=== PATIENT | male | born 1970 | race Caucasian/White ===

== ENCOUNTER 2016-10-08 11:34 | Emergency (ER) | payer OTHER ==
[~2016-10-08] VITALS: Ht 182.9 cm; Wt 100.3 kg
[~2016-10-08 11:34] MED LIST: ACTOS15 MG PO; ACTOS30 MG PO; ALBUTEROL0.63 MG/3 IH; ASPIR-LOW81 MG PO; ATIVAN0.5 MG PO; BENZTROPINE MESY1 MG PO; CLARITIN10 M3 PO; CLINDAMYCIN HC300 MG PO; COGENTIN2 MG PO; COLACE100 MG PO; COMBIVENT INH14.7 GM IH; Colace PO; DEPAKOTE500 MG PO; DICLOFENAC SODI75 MG PO; DOCUSATE SODIU100 MG PO; FAMOTIDINE20 M1 NG; FAMOTIDINE20 MG PO; FLEXERIL5 MG PO; FLUOXETINE HCL20 MG PO; GABAPENTIN400 MG PO; GLUCOPHAGE1000 MG PO; JUBLIA4 ML TP; KEFLEX500 MG PO; LANTUS 10100 UNITS/ SC; LANTUS 3 M100 UNITS/ SC; LANTUS 3 M100 UNITS1 SC; LATUDA40 MG PO; LISINOPRIL5 MG PO; LORATADINE10 M2 PO; MELOXICAM15 MG PO; METFORMIN HCL1000 M1 PO; METFORMIN HCL1000 MG PO; MIRALAX17 GM PO; MOBIC15 MG PO; MOBIC7.5 MG PO; Mobic PO; NAPROSYN500 MG PO; NEURONTIN600 MG PO; NEURONTIN800 MG PO; NOVOLOG 10100 UNITS/ SC; NOVOLOG PE100 UNITS/ SC; NOVOLOG100 UNIT/3 SC; Neurontin PO; OMEPRAZOLE20 MG PO; OMEPRAZOLE40 M1 PO; PANTOPRAZOLE SO40 MG PO; PERPHENAZINE16 MG PO; PIOGLITAZONE HC30 MG PO; PRAVASTATIN SOD40 MG PO; PRILOSEC20 MG PO; PROAIR HFA8.5 GM IH; PROMETHAZINE HC25 M1 PO; PriLOSEC PO; RESTORIL15 MG PO; RESTORIL30 MG PO; RISPERDAL25 MG/2 ML IM; RISPERIDONE3 MG PO; SAPHRIS10 MG SL; SIMVASTATIN20 MG PO; SINEQUAN50 MG PO; TOPAMAX50 MG PO; TRAMADOL HCL50 MG PO; TRAZODONE HCL50 MG PO; TRILAFON8 MG PO; Trilafon PO; ULTRAM50 MG PO; VENTOLIN HFA18 GM IH; VICODIN HP 11 TABLET; ZESTRIL,PRINIVIL5 MG PO; Zestril,Prinivil PO
[2016-10-08] MEDS ORDERED: NAPROSYN500 MG PO (15:43)
[2016-10-08] MEDS ORDERED: ELIMITE 5% CREA60 GM TP (15:46)
[2016-10-08 15:57] VITALS: BP 116/68
== END 2016-10-08 16:01 | disposition home or self-care (01) ==
LOC: EME 11:34
DX: S93.402A Sprain of unspecified ligament of left ankle, initial encounter (principal); S73.102A Unspecified sprain of left hip, initial encounter; B86 Scabies; W19.XXXA Unspecified fall, initial encounter; E11.9 Type 2 diabetes mellitus without complications
CPT/HCPCS: 73502; 73610; 99281; 99284

== ENCOUNTER 2016-10-10 08:25 | Emergency (ER) | payer OTHER ==
[~2016-10-10] VITALS: Ht 177.8 cm; Wt 98.4 kg
[~2016-10-10 08:25] MED LIST changes: +ELIMITE 5% CREA60 GM TP
[2016-10-10 09:13] LABS: EOSINOPHIL (%) 3.3 % (0-5); EOSINOPHIL COUNT 0.2 K/uL (0-0.3); HEMATOCRIT 40.8 % (38.0-50.0); IMMATURE GRANULOCYTE (%) 0.2 % (0.0-0.7); IMMATURE GRANULOCYTE COUNT 0.1 K/uL; LYMPHOCYTE COUNT 0.7 K/uL (1.0-2.8); MCH 30.5 PG (29.0-34.0); MCHC 32.6 G/DL (30.0-36.0); MEAN PLAT.VOLUME 10.3 uM^3 (9.0-12.4); MONOCYTE (%) 6.7 % (3-12); MONOCYTE COUNT 0.3 K/uL (0-0.8); NEUTROPHIL (%) 72.9 % (45-76); NEUTROPHIL COUNT 3.3 K/uL (1.8-6.4); PLATELET COUNT 227 K/uL (156-360); RBC DIS.WIDTH-CV 12.3 % (11.8-14.6); RED BLOOD COUNT 4.36 M/uL (4.00-5.50)
[2016-10-10 09:14] LABS: MCV 93.6 FL (86-99); WHITE BLOOD COUNT 4.5 K/uL (4.1-10.2)
[2016-10-10 09:20] LABS: CHLORIDE 103 mEq/L (99-109); POTASSIUM 3.7 mEq/L (3.7-5.4); SODIUM 139 mEq/L (136-147)
[2016-10-10 09:23] LABS: GLUCOSE 234 mg/dL (70-99)
[2016-10-10 09:24] LABS: ANION GAP 6 MEQ/L (2-14)
[2016-10-10 09:25] LABS: TOTAL BILIRUBIN 0.4 mg/dL (0.0-1.0)
[2016-10-10 09:26] LABS: ALKALINE PHOSPHATASE 98 IU/L (3-129); GFR ESTIMATE (CALCULATED) > 59 mL/min/; SERUM ETHYL ALCOHOL < 10 mg/dL
[2016-10-10 09:28] LABS: UREA NITROGEN (BUN) 12 mg/dL (9-23)
[2016-10-10 12:12] VITALS: BP 119/64
[2016-10-11] MEDS ORDERED: FAMOTIDINE20 MG PO (09:16)
[2016-10-11] MEDS ORDERED: METFORMIN HCL1000 MG PO (09:18)
[2016-10-11] MEDS ORDERED: DICLOFENAC SODI75 MG PO (09:19)
[2016-10-11] MEDS ORDERED: PROTONIX40 MG PO (09:21)
[2016-10-11] MEDS ORDERED: LORADAMED10 MG PO (09:23)
[2016-10-11] MEDS ORDERED: CLARITIN,ALAVAR10 MG PO (09:26)
[2016-10-11] MEDS ORDERED: LISINOPRIL5 MG PO (09:27)
[2016-10-11] MEDS ORDERED: ACTOS30 MG PO (09:28)
[2016-10-11] MEDS ORDERED: COGENTIN1 MG PO (09:29)
[2016-10-11] MEDS ORDERED: PROZAC20 MG PO (09:30)
[2016-10-11] MEDS ORDERED: RISPERDAL25 MG/2 ML IM (09:37)
== END 2016-10-10 12:13 | disposition home or self-care (01) ==
LOC: EME → EDBD 08:25 → EME 08:25
PROVIDERS: Emergency Medicine
DX: F20.9 Schizophrenia, unspecified (principal); I10 Essential (primary) hypertension; E11.9 Type 2 diabetes mellitus without complications; K21.9 Gastro-esophageal reflux disease without esophagitis; Z86.73 Personal history of transient ischemic attack (TIA), and cerebral infarction without residual deficits; Z88.2 Allergy status to sulfonamides; Z88.1 Allergy status to other antibiotic agents; Z87.891 Personal history of nicotine dependence
CPT/HCPCS: 80053; 85025; 90839; 99281; 99284; G0480

== ENCOUNTER 2016-10-10 20:20 | Inpatient (IN) | payer OTHER ==
[~2016-10-10] VITALS: Ht 177.8 cm; Wt 96.4 kg
[2016-10-10 22:11] LABS: HEMATOCRIT 38.5 % (38.0-50.0); MCH 30.6 PG (29.0-34.0); MCV 92.8 FL (86-99); MEAN PLAT.VOLUME 10.3 uM^3 (9.0-12.4); PLATELET COUNT 237 K/uL (156-360); RBC DIS.WIDTH-CV 12.4 % (11.8-14.6); RED BLOOD COUNT 4.15 M/uL (4.00-5.50); WHITE BLOOD COUNT 6.8 K/uL (4.1-10.2)
[2016-10-10 22:19] LABS: CHLORIDE 105 mEq/L (99-109); POTASSIUM 3.8 mEq/L (3.7-5.4); SODIUM 140 mEq/L (136-147)
[2016-10-10 22:21] LABS: GLUCOSE 186 mg/dL (70-99)
[2016-10-10 22:22] LABS: ANION GAP 6 MEQ/L (2-14)
[2016-10-10 22:24] LABS: SERUM ETHYL ALCOHOL < 10 mg/dL
[2016-10-10 22:25] LABS: GFR ESTIMATE (CALCULATED) > 59 mL/min/
[2016-10-10 22:26] LABS: UREA NITROGEN (BUN) 13 mg/dL (9-23)
[2016-10-11 00:50] LABS: BILIRUBIN NEGATIVE; BLOOD NEGATIVE; COLOR YELLOW ((YELLOW)); GLUCOSE (STRIP) 250; KETONES 15; LEUKOCYTES NEGATIVE; NITRITE NEGATIVE; PROTEIN (STRIP) NEGATIVE; SPECIFIC GRAVITY 1.022 (1.000-1.030); UROBILINOGEN 0.2 MG/DL (0.2-1.0)
[2016-10-11 00:52] LABS: ADD MIUA? NO; UCUL ADDED? NO
[2016-10-11 00:59] LABS: AMPHETAMINE NEGATIVE (500 ng/mL); BARBITURATES NEGATIVE (200 ng/mL); BENZODIAZEPINES NEGATIVE (150 ng/mL); COCAINE NEGATIVE (150 ng/mL); INTERNAL CONTROLS VALID? YES; METHADONE NEGATIVE (200 ng/mL); METHAMPHETAMINE NEGATIVE (500 ng/mL); OPIATES (MORPHINE) NEGATIVE (100 ng/mL); OXYCODONE NEGATIVE (100 ng/mL); PHENCYCLIDINE NEGATIVE (25 ng/mL); PROPOXYPHENE NEGATIVE (300 ng/mL); THC CANNABINOIDS NEGATIVE (50 ng/mL); TRICYCLIC ANTIDEPRESSANTS NEGATIVE (300 ng/mL)
[2016-10-11 01:02] VITALS: BP 127/58
[2016-10-11 02:32] LABS: POINT-OF-CARE METER ID UU13113830; POINT-OF-CARE USER ID ENVTLS63
[2016-10-11 07:51] VITALS: BP 134/69
[2016-10-11] MEDS ORDERED: FAMOTIDINE20 MG PO (09:16)
[2016-10-11] MEDS ORDERED: METFORMIN HCL1000 MG PO (09:18)
[2016-10-11] MEDS ORDERED: DICLOFENAC SODI75 MG PO (09:19)
[2016-10-11] MEDS ORDERED: PROTONIX40 MG PO (09:21)
[2016-10-11] MEDS ORDERED: LORADAMED10 MG PO (09:23)
[2016-10-11] MEDS ORDERED: CLARITIN,ALAVAR10 MG PO (09:26)
[2016-10-11] MEDS ORDERED: LISINOPRIL5 MG PO (09:27)
[2016-10-11] MEDS ORDERED: ACTOS30 MG PO (09:28)
[2016-10-11] MEDS ORDERED: COGENTIN1 MG PO (09:29)
[2016-10-11] MEDS ORDERED: PROZAC20 MG PO (09:30)
[2016-10-11] MEDS ORDERED: RISPERDAL25 MG/2 ML IM (09:37)
[2016-10-11 15:24] VITALS: BP 129/78
[2016-10-12 07:59] VITALS: BP 124/56
[2016-10-12 16:09] VITALS: BP 112/59
[2016-10-13 07:47] VITALS: BP 109/53
[2016-10-13 11:48] VITALS: BP 115/55
[2016-10-13 15:33] VITALS: BP 121/59
[2016-10-13 16:36] LABS: POINT-OF-CARE METER ID UU13113830; POINT-OF-CARE USER ID BHSLRM
[2016-10-13 21:08] LABS: POINT-OF-CARE METER ID UU13113830; POINT-OF-CARE USER ID BHSLRM
[2016-10-14 06:12] LABS: POINT-OF-CARE METER ID UU13113830; POINT-OF-CARE USER ID BHSSMG
[2016-10-14 07:49] VITALS: BP 113/59
[2016-10-14 15:36] VITALS: BP 120/63
[2016-10-14 21:19] LABS: POINT-OF-CARE METER ID UU13113830
[2016-10-15 06:14] LABS: POINT-OF-CARE METER ID UU13113830; POINT-OF-CARE USER ID ENVTLS63
[2016-10-15 08:07] VITALS: BP 106/72
[2016-10-15 08:56] VITALS: BP 106/72
[2016-10-15 15:37] VITALS: BP 125/62
[2016-10-15 21:23] LABS: POINT-OF-CARE METER ID UU13113830; POINT-OF-CARE USER ID ENVTLS63
[2016-10-16 06:27] LABS: POINT-OF-CARE METER ID UU13113830; POINT-OF-CARE USER ID ENVTLS63
[2016-10-16 07:53] VITALS: BP 105/53
[2016-10-16 15:35] VITALS: BP 121/58
[2016-10-16 21:29] LABS: POINT-OF-CARE METER ID UU13113830; POINT-OF-CARE USER ID BHSSMG
[2016-10-17 06:09] LABS: POINT-OF-CARE METER ID UU13113830
[2016-10-17 07:31] VITALS: BP 109/59
[2016-10-17 15:56] VITALS: BP 113/67
[2016-10-18 06:17] LABS: POINT-OF-CARE METER ID UU13113830
[2016-10-18 07:39] VITALS: BP 99/50
[2016-10-18 16:04] VITALS: BP 129/58
[2016-10-19 06:15] LABS: POINT-OF-CARE METER ID UU13113830; POINT-OF-CARE USER ID ENVTLS63
[2016-10-19 07:51] VITALS: BP 116/56
[2016-10-19 15:36] VITALS: BP 102/59
[2016-10-19 21:52] LABS: POINT-OF-CARE METER ID UU13113830
[2016-10-20 08:02] VITALS: BP 125/53
[2016-10-20] MEDS ORDERED: PERPHENAZINE4 MG PO ×2 (09:33)
[2016-10-20] MEDS ORDERED: MOTRIN600 MG PO (09:33)
== END 2016-10-20 11:31 | disposition home or self-care (01) | DRG 885 ==
LOC: EME 20:20 → EDOF 22:51 → 1WEST 22:51
PROVIDERS: Emergency Medicine; Psychiatry & Neurology Psychiatry
DX: F20.9 Schizophrenia, unspecified (principal); E11.9 Type 2 diabetes mellitus without complications; R23.4 Changes in skin texture; Z91.14 Patient's other noncompliance with medication regimen; I10 Essential (primary) hypertension
CPT/HCPCS: 80048; 80053; 81003; 82948; 85025; 85027; 90839; 97150 GO; 97165 GO; 99281; 99284; G0480; Q0175

== ENCOUNTER 2016-10-30 00:23 | Emergency (ER) | payer OTHER ==
[~2016-10-30] VITALS: Ht 185.4 cm; Wt 98.3 kg
[~2016-10-30 00:23] MED LIST changes: +CLARITIN,ALAVAR10 MG PO; +COGENTIN1 MG PO; +LORADAMED10 MG PO; +MOTRIN600 MG PO; +PERPHENAZINE4 MG PO; +PROTONIX40 MG PO; +PROZAC20 MG PO
[2016-10-30 03:02] VITALS: BP 118/71
== END 2016-10-30 03:03 | disposition home or self-care (01) ==
LOC: EME 00:23 → RME 00:23
DX: G89.29 Other chronic pain (principal); M25.571 Pain in right ankle and joints of right foot; M25.572 Pain in left ankle and joints of left foot; S93.402A Sprain of unspecified ligament of left ankle, initial encounter; X50.1XXA Overexertion from prolonged static or awkward postures, initial encounter; Z59.0 Homelessness; Z87.891 Personal history of nicotine dependence
CPT/HCPCS: 73610; 99281; 99284

== ENCOUNTER 2016-11-02 09:54 | Emergency (ER) | payer OTHER ==
[~2016-11-02] VITALS: Ht 188 cm; Wt 98.0 kg
[2016-11-02] MEDS ORDERED: NAPROXEN500 MG PO (10:55)
[2016-11-02 11:03] VITALS: BP 102/68
[2016-11-03] MEDS ORDERED: COGENTIN1 MG PO (07:59)
[2016-11-03] MEDS ORDERED: MOTRIN600 MG PO (07:59)
[2016-11-03] MEDS ORDERED: NEURONTIN800 MG PO (08:00)
[2016-11-03] MEDS ORDERED: PERPHENAZINE16 MG PO ×2 (08:00→08:01)
[2016-11-03] MEDS ORDERED: PROTONIX40 MG PO (08:01)
[2016-11-03] MEDS ORDERED: LISINOPRIL5 MG PO (08:02)
[2016-11-03] MEDS ORDERED: PEPCID20 MG PO (08:02)
[2016-11-03] MEDS ORDERED: CLARITIN,ALAVAR10 MG PO (08:03)
[2016-11-03] MEDS ORDERED: ACTOS30 MG PO (08:03)
[2016-11-03] MEDS ORDERED: GLUCOPHAGE1000 MG PO (08:04)
[2016-11-03] MEDS ORDERED: RISPERDAL25 MG/2 ML IM (08:05)
== END 2016-11-02 11:03 | disposition home or self-care (01) ==
LOC: EME 09:54
DX: S70.11XA Contusion of right thigh, initial encounter (principal); W50.2XXA Accidental twist by another person, initial encounter; Z88.0 Allergy status to penicillin; Z88.2 Allergy status to sulfonamides; Z88.1 Allergy status to other antibiotic agents
CPT/HCPCS: 99281; 99283; J1885

== ENCOUNTER 2016-11-03 01:41 | Inpatient (IN) | payer OTHER ==
[~2016-11-03] VITALS: Ht 188 cm; Wt 96.2 kg
[~2016-11-03 01:41] MED LIST changes: +NAPROXEN500 MG PO
[2016-11-03 03:56] LABS: ADD MIUA? NO; BILIRUBIN NEGATIVE; BLOOD NEGATIVE; COLOR YELLOW ((YELLOW)); GLUCOSE (STRIP) >=1000; KETONES NEGATIVE; LEUKOCYTES NEGATIVE; NITRITE NEGATIVE; PH, URINE 5.5 (5-8); PROTEIN (STRIP) NEGATIVE; SPECIFIC GRAVITY 1.033 (1.000-1.030)
[2016-11-03 04:07] LABS: HEMATOCRIT 36.9 % (38.0-50.0); MCH 30.4 PG (29.0-34.0); MCHC 32.5 G/DL (30.0-36.0); MCV 93.4 FL (86-99); MEAN PLAT.VOLUME 10.5 uM^3 (9.0-12.4); PLATELET COUNT 217 K/uL (156-360); RBC DIS.WIDTH-CV 12.6 % (11.8-14.6); RBC DIS.WIDTH-SD 41.5 % (39-53); RED BLOOD COUNT 3.95 M/uL (4.00-5.50); WHITE BLOOD COUNT 5.8 K/uL (4.1-10.2)
[2016-11-03 04:07] LABS: AMPHETAMINE NEGATIVE (500 ng/mL); BARBITURATES NEGATIVE (200 ng/mL); BENZODIAZEPINES NEGATIVE (150 ng/mL); COCAINE NEGATIVE (150 ng/mL); INTERNAL CONTROLS VALID? YES; METHADONE NEGATIVE (200 ng/mL); METHAMPHETAMINE NEGATIVE (500 ng/mL); OPIATES (MORPHINE) NEGATIVE (100 ng/mL); OXYCODONE NEGATIVE (100 ng/mL); PHENCYCLIDINE NEGATIVE (25 ng/mL); PROPOXYPHENE NEGATIVE (300 ng/mL); THC CANNABINOIDS NEGATIVE (50 ng/mL); TRICYCLIC ANTIDEPRESSANTS NEGATIVE (300 ng/mL)
[2016-11-03 04:14] LABS: CHLORIDE 106 mEq/L (99-109); POTASSIUM 4.1 mEq/L (3.7-5.4); SODIUM 139 mEq/L (136-147)
[2016-11-03 04:16] LABS: GLUCOSE 290 mg/dL (70-99)
[2016-11-03 04:17] LABS: ANION GAP 9 MEQ/L (2-14)
[2016-11-03 04:19] LABS: SERUM ETHYL ALCOHOL < 10 mg/dL
[2016-11-03 04:20] LABS: GFR ESTIMATE (CALCULATED) > 59 mL/min/; TOTAL BILIRUBIN 0.3 mg/dL (0.0-1.0)
[2016-11-03 04:21] LABS: ALKALINE PHOSPHATASE 86 IU/L (3-129)
[2016-11-03 04:22] LABS: DIRECT BILIRUBIN 0.2 mg/dL (0.0-0.3)
[2016-11-03 04:23] LABS: SALICYLATE < 5.0 MG/DL (15-30)
[2016-11-03 04:34] LABS: UREA NITROGEN (BUN) 24 mg/dL (9-23)
[2016-11-03 05:37] VITALS: BP 126/71
[2016-11-03 07:22] VITALS: BP 120/56
[2016-11-03] MEDS ORDERED: MOTRIN600 MG PO (07:59)
[2016-11-03] MEDS ORDERED: COGENTIN1 MG PO (07:59)
[2016-11-03] MEDS ORDERED: NEURONTIN800 MG PO (08:00)
[2016-11-03] MEDS ORDERED: PERPHENAZINE16 MG PO ×2 (08:00→08:01)
[2016-11-03] MEDS ORDERED: PROTONIX40 MG PO (08:01)
[2016-11-03] MEDS ORDERED: LISINOPRIL5 MG PO (08:02)
[2016-11-03] MEDS ORDERED: PEPCID20 MG PO (08:02)
[2016-11-03] MEDS ORDERED: ACTOS30 MG PO (08:03)
[2016-11-03] MEDS ORDERED: CLARITIN,ALAVAR10 MG PO (08:03)
[2016-11-03] MEDS ORDERED: GLUCOPHAGE1000 MG PO (08:04)
[2016-11-03] MEDS ORDERED: RISPERDAL25 MG/2 ML IM (08:05)
[2016-11-03 12:52] LABS: POINT-OF-CARE METER ID UU13113830
[2016-11-03 15:39] VITALS: BP 118/65
[2016-11-04 07:52] VITALS: BP 105/55
[2016-11-04 12:19] LABS: POINT-OF-CARE METER ID UU13113830; POINT-OF-CARE USER ID HRSENV50
[2016-11-04 15:52] VITALS: BP 112/53
[2016-11-04 17:47] VITALS: BP 133/87
[2016-11-05 07:45] VITALS: BP 95/54
[2016-11-05 13:51] LABS: POINT-OF-CARE METER ID UU13113830
[2016-11-05 16:06] VITALS: BP 100/53
[2016-11-06 07:40] VITALS: BP 110/67
[2016-11-06 15:40] VITALS: BP 134/69
[2016-11-07 07:46] VITALS: BP 109/56
[2016-11-07] MEDS ORDERED: RISPERDAL25 MG/2 ML IM (13:10)
[2016-11-07 15:26] VITALS: BP 112/55
[2016-11-08 09:45] VITALS: BP 117/63
[2016-11-08 15:40] VITALS: BP 122/58
[2016-11-09 07:57] VITALS: BP 117/58
[2016-11-09 15:31] VITALS: BP 112/61
[2016-11-10 07:42] VITALS: BP 107/63
[2016-11-10 16:25] VITALS: BP 116/58
[2016-11-11 07:43] VITALS: BP 97/58
[2016-11-11 15:27] VITALS: BP 122/59
[2016-11-12 07:59] VITALS: BP 118/58
[2016-11-12 08:58] LABS: EOSINOPHIL (%) 2.7 % (0-5); EOSINOPHIL COUNT 0.1 K/uL (0-0.3); HEMATOCRIT 40.2 % (38.0-50.0); IMMATURE GRANULOCYTE (%) 0.2 % (0.0-0.7); LYMPHOCYTE COUNT 1.1 K/uL (1.0-2.8); MCHC 32.3 G/DL (30.0-36.0); MCV 95.7 FL (86-99); MEAN PLAT.VOLUME 11.1 uM^3 (9.0-12.4); MONOCYTE (%) 4.3 % (3-12); MONOCYTE COUNT 0.2 K/uL (0-0.8); NEUTROPHIL (%) 71.7 % (45-76); NEUTROPHIL COUNT 3.7 K/uL (1.8-6.4); PLATELET COUNT 215 K/uL (156-360); RBC DIS.WIDTH-SD 44.8 % (39-53); WHITE BLOOD COUNT 5.2 K/uL (4.1-10.2)
[2016-11-12 09:16] LABS: ALKALINE PHOSPHATASE 70 IU/L (3-129); DIRECT BILIRUBIN 0.1 mg/dL (0.0-0.3); TOTAL BILIRUBIN 0.4 MG/DL (0.0-1.0)
[2016-11-12 15:12] VITALS: BP 145/60
[2016-11-13 07:24] VITALS: BP 132/63
[2016-11-13 15:34] VITALS: BP 117/56
[2016-11-14 07:59] VITALS: BP 97/56
[2016-11-14 16:00] VITALS: BP 111/54
[2016-11-15 07:45] VITALS: BP 115/58
[2016-11-15 16:29] VITALS: BP 105/48
[2016-11-16 07:59] VITALS: BP 131/60
[2016-11-16] MEDS ORDERED: DIVALPROEX SOD500 MG PO (09:22)
== END 2016-11-16 12:00 | disposition home or self-care (01) | DRG 885 ==
LOC: EXP 01:41 → EME 01:41 → EDOF 03:46 → 1WEST 03:46
PROVIDERS: Nurse Practitioner Family; Physician Assistant; Psychiatry & Neurology Psychiatry
DX: F20.9 Schizophrenia, unspecified (principal); I10 Essential (primary) hypertension; E11.9 Type 2 diabetes mellitus without complications; Z86.73 Personal history of transient ischemic attack (TIA), and cerebral infarction without residual deficits; Z91.81 History of falling
CPT/HCPCS: 73502; 80048; 80076; 80164; 81003; 82140; 82948; 85025; 85027; 90839; 97150 GO; 97166 GO; 99281; 99283; 99284; G0480; J1885; J2794; Q0175

== ENCOUNTER 2016-11-22 15:41 | Inpatient (IN) | payer OTHER ==
[~2016-11-22] VITALS: Ht 177.8 cm; Wt 100.1 kg
[~2016-11-22 15:41] MED LIST changes: +DIVALPROEX SOD500 MG PO; +PEPCID20 MG PO
[2016-11-22 19:25] LABS: HEMATOCRIT 35.5 % (38.0-50.0); MCH 30.5 PG (29.0-34.0); MCHC 32.7 G/DL (30.0-36.0); MCV 93.4 FL (86-99); MEAN PLAT.VOLUME 10.5 uM^3 (9.0-12.4); PLATELET COUNT 199 K/uL (156-360); RBC DIS.WIDTH-CV 12.7 % (11.8-14.6); RBC DIS.WIDTH-SD 41.9 % (39-53); WHITE BLOOD COUNT 6.7 K/uL (4.1-10.2)
[2016-11-22 19:32] LABS: CHLORIDE 107 mEq/L (99-109); POTASSIUM 3.7 mEq/L (3.7-5.4); SODIUM 144 mEq/L (136-147)
[2016-11-22 19:34] LABS: GLUCOSE 181 mg/dL (70-99)
[2016-11-22 19:36] LABS: ANION GAP 9 MEQ/L (2-14)
[2016-11-22 19:37] LABS: SERUM ETHYL ALCOHOL < 10 mg/dL
[2016-11-22 19:38] LABS: GFR ESTIMATE (CALCULATED) > 59 mL/min/
[2016-11-22 19:40] LABS: UREA NITROGEN (BUN) 11 mg/dL (9-23)
[2016-11-22 19:41] LABS: SALICYLATE < 5.0 MG/DL (15-30)
[2016-11-22 20:15] LABS: AMPHETAMINE NEGATIVE (500 ng/mL); COCAINE NEGATIVE (150 ng/mL); METHAMPHETAMINE NEGATIVE (500 ng/mL); OPIATES (MORPHINE) NEGATIVE (100 ng/mL); PHENCYCLIDINE NEGATIVE (25 ng/mL); THC CANNABINOIDS NEGATIVE (50 ng/mL)
[2016-11-22 20:16] LABS: BARBITURATES NEGATIVE (200 ng/mL); BENZODIAZEPINES NEGATIVE (150 ng/mL); INTERNAL CONTROLS VALID? YES; METHADONE NEGATIVE (200 ng/mL); OXYCODONE NEGATIVE (100 ng/mL); PROPOXYPHENE NEGATIVE (300 ng/mL); TRICYCLIC ANTIDEPRESSANTS NEGATIVE (300 ng/mL)
[2016-11-22] MEDS ORDERED: MOTRIN600 MG PO (21:59)
[2016-11-22] MEDS ORDERED: COGENTIN1 MG PO (22:00)
[2016-11-22] MEDS ORDERED: NEURONTIN800 MG PO (22:00)
[2016-11-22] MEDS ORDERED: PERPHENAZINE16 MG PO ×2 (22:01→22:02)
[2016-11-22] MEDS ORDERED: PROTONIX40 MG PO (22:03)
[2016-11-22] MEDS ORDERED: PEPCID20 MG PO (22:03)
[2016-11-22] MEDS ORDERED: LISINOPRIL5 MG PO (22:04)
[2016-11-22] MEDS ORDERED: ACTOS30 MG PO (22:04)
[2016-11-22] MEDS ORDERED: CLARITIN,ALAVAR10 MG PO (22:04)
[2016-11-22] MEDS ORDERED: RISPERDAL25 MG/2 ML IM (22:05)
[2016-11-22] MEDS ORDERED: DEPAKOTE500 MG PO (22:06)
[2016-11-22] MEDS ORDERED: GLUCOPHAGE1000 MG PO (22:06)
[2016-11-23 07:48] VITALS: BP 115/56
[2016-11-23 15:27] VITALS: BP 94/50
[2016-11-24 07:59] VITALS: BP 100/51
[2016-11-24 15:39] VITALS: BP 117/57
[2016-11-25 07:56] VITALS: BP 120/56
[2016-11-25 15:42] VITALS: BP 112/55
[2016-11-26 09:27] VITALS: BP 99/48
[2016-11-26 15:12] VITALS: BP 105/53
[2016-11-27 07:37] VITALS: BP 104/61
[2016-11-27 15:29] VITALS: BP 125/57
[2016-11-28 08:10] VITALS: BP 105/52
[2016-11-28 14:58] VITALS: BP 103/49
[2016-11-29 07:29] VITALS: BP 111/56
[2016-11-29 15:26] VITALS: BP 104/51
[2016-11-30 07:58] VITALS: BP 97/54
[2016-11-30 15:00] VITALS: BP 110/56
[2016-12-01 07:35] VITALS: BP 114/53
[2016-12-01 10:35] LABS: ADD MIUA? NO; BILIRUBIN NEGATIVE; BLOOD NEGATIVE; COLOR STRAW ((YELLOW)); GLUCOSE (STRIP) NEGATIVE; KETONES NEGATIVE; LEUKOCYTES NEGATIVE; NITRITE NEGATIVE; PROTEIN (STRIP) NEGATIVE; SPECIFIC GRAVITY 1.008 (1.000-1.030); UROBILINOGEN 0.2 MG/DL (0.2-1.0)
[2016-12-01 15:15] VITALS: BP 122/65
[2016-12-02 07:49] VITALS: BP 113/56
[2016-12-02 15:45] VITALS: BP 106/54
[2016-12-03 07:56] VITALS: BP 118/63
[2016-12-03 15:54] VITALS: BP 122/58
[2016-12-04 07:50] VITALS: BP 118/72
[2016-12-04 15:26] VITALS: BP 113/56
[2016-12-05 07:47] VITALS: BP 112/55
[2016-12-05 15:34] VITALS: BP 107/52
[2016-12-06 07:49] VITALS: BP 114/71
[2016-12-06 15:40] VITALS: BP 113/50
[2016-12-07 07:45] VITALS: BP 125/66
[2016-12-07 15:49] VITALS: BP 104/53
[2016-12-08 08:00] VITALS: BP 131/70
[2016-12-08 15:44] VITALS: BP 112/56
[2016-12-09 07:46] VITALS: BP 111/56
[2016-12-09 15:21] VITALS: BP 115/58
[2016-12-10 09:36] VITALS: BP 117/59
[2016-12-10 15:42] VITALS: BP 113/53
[2016-12-11 07:25] VITALS: BP 115/63
[2016-12-11 15:54] VITALS: BP 111/54
[2016-12-12 07:38] VITALS: BP 99/55
[2016-12-12 15:55] VITALS: BP 126/60
[2016-12-13 07:40] VITALS: BP 109/55
[2016-12-13 14:51] VITALS: BP 113/54
[2016-12-14] MEDS ORDERED: ARIPIPRAZOLE10 MG PO (09:31)
[2016-12-14 09:55] VITALS: BP 111/71
== END 2016-12-14 12:00 | disposition home or self-care (01) | DRG 885 ==
LOC: EME 15:41 → EDOF 19:26 → 1WEST 19:26
PROVIDERS: Emergency Medicine; Nurse Practitioner Family
DX: F20.1 Disorganized schizophrenia (principal); S92.354A Nondisplaced fracture of fifth metatarsal bone, right foot, initial encounter for closed fracture; H10.9 Unspecified conjunctivitis; J45.909 Unspecified asthma, uncomplicated; I10 Essential (primary) hypertension; E11.9 Type 2 diabetes mellitus without complications; K21.9 Gastro-esophageal reflux disease without esophagitis; G40.909 Epilepsy, unspecified, not intractable, without status epilepticus; F17.210 Nicotine dependence, cigarettes, uncomplicated; Z88.0 Allergy status to penicillin; Z88.1 Allergy status to other antibiotic agents; Z88.2 Allergy status to sulfonamides; X58.XXXA Exposure to other specified factors, initial encounter; Y92.239 Unspecified place in hospital as the place of occurrence of the external cause
CPT/HCPCS: 73630; 80048; 81003; 85027; 90837; 97150 GO; 97166 GO; 97530 GO; 99281; 99285; G0480; J2794

== ENCOUNTER 2016-12-18 19:46 | Emergency (ER) | payer OTHER ==
[~2016-12-18] VITALS: Ht 177.8 cm; Wt 96.2 kg
[~2016-12-18 19:46] MED LIST changes: +ARIPIPRAZOLE10 MG PO
[2016-12-18 20:07] VITALS: BP 103/79
[2016-12-18] MEDS ORDERED: NORCO 5/3251 TABLET PO (23:15)
== END 2016-12-18 23:55 | disposition home or self-care (01) ==
LOC: EME 19:46
PROC: 2W3QX1Z Immobilization of Right Lower Leg using Splint (ICD-10-PCS; principal; 2016-12-18)
DX: S92.351A Displaced fracture of fifth metatarsal bone, right foot, initial encounter for closed fracture (principal); M79.604 Pain in right leg; M25.551 Pain in right hip; M79.662 Pain in left lower leg; Y04.2XXA Assault by strike against or bumped into by another person, initial encounter; I10 Essential (primary) hypertension; E11.9 Type 2 diabetes mellitus without complications; Z87.891 Personal history of nicotine dependence
CPT/HCPCS: 73552; 73590; 73630; 99281; 99283

== ENCOUNTER 2016-12-19 11:25 | Emergency (ER) | payer OTHER ==
[~2016-12-19] VITALS: Ht 177.8 cm; Wt 96.3 kg
[~2016-12-19 11:25] MED LIST changes: +NORCO 5/3251 TABLET PO
[2016-12-19 14:21] LABS: EOSINOPHIL (%) 1.4 % (0-5); EOSINOPHIL COUNT 0.1 K/uL (0-0.3); HEMATOCRIT 39.4 % (38.0-50.0); IMMATURE GRANULOCYTE (%) 0.5 % (0.0-0.7); INSTRUMENT ABS NEUTROPHIL CT 4.3 K/uL; MCH 30.5 PG (29.0-34.0); MCHC 32.5 G/DL (30.0-36.0); MEAN PLAT.VOLUME 10.6 uM^3 (9.0-12.4); MONOCYTE (%) 7.8 % (3-12); MONOCYTE COUNT 0.5 K/uL (0-0.8); NEUTROPHIL (%) 73.2 % (45-76); NEUTROPHIL COUNT 4.3 K/uL (1.8-6.4); PLATELET COUNT 237 K/uL (156-360); RBC DIS.WIDTH-CV 13.2 % (11.8-14.6); RBC DIS.WIDTH-SD 45.1 % (39-53); RED BLOOD COUNT 4.19 M/uL (4.00-5.50); WHITE BLOOD COUNT 5.9 K/uL (4.1-10.2)
[2016-12-19 14:32] LABS: CHLORIDE 105 mEq/L (99-109); POTASSIUM 3.9 mEq/L (3.7-5.4); SODIUM 142 mEq/L (136-147)
[2016-12-19 14:34] LABS: GLUCOSE 157 mg/dL (70-99)
[2016-12-19 14:35] LABS: ANION GAP 11 MEQ/L (2-14)
[2016-12-19 14:36] LABS: TOTAL BILIRUBIN 0.7 mg/dL (0.0-1.0)
[2016-12-19 14:37] LABS: ALKALINE PHOSPHATASE 104 IU/L (3-129)
[2016-12-19 14:38] LABS: GFR ESTIMATE (CALCULATED) > 59 mL/min/
[2016-12-19 14:39] LABS: UREA NITROGEN (BUN) 19 mg/dL (9-23)
[2016-12-19 15:11] VITALS: BP 125/73
== END 2016-12-19 15:11 | disposition home or self-care (01) ==
LOC: EME 11:25
PROVIDERS: Physician Assistant
DX: K21.9 Gastro-esophageal reflux disease without esophagitis (principal)
CPT/HCPCS: 74020; 80053; 85025; 99281; 99283

== ENCOUNTER 2016-12-19 19:39 | Emergency (ER) | payer OTHER ==
[~2016-12-19] VITALS: Ht 177.8 cm; Wt 91.9 kg
[2016-12-19 20:36] LABS: HEMATOCRIT 36.7 % (38.0-50.0); MCH 30.5 PG (29.0-34.0); MCHC 32.7 G/DL (30.0-36.0); MCV 93.1 FL (86-99); PLATELET COUNT 216 K/uL (156-360); RBC DIS.WIDTH-CV 13.2 % (11.8-14.6); RBC DIS.WIDTH-SD 45.1 % (39-53); RED BLOOD COUNT 3.94 M/uL (4.00-5.50)
[2016-12-19 20:45] LABS: CHLORIDE 106 mEq/L (99-109); POTASSIUM 4.3 mEq/L (3.7-5.4); SODIUM 143 mEq/L (136-147)
[2016-12-19 20:47] LABS: GLUCOSE 149 mg/dL (70-99)
[2016-12-19 20:48] LABS: ANION GAP 11 MEQ/L (2-14)
[2016-12-19 20:49] LABS: TOTAL BILIRUBIN 0.6 mg/dL (0.0-1.0)
[2016-12-19 20:50] LABS: SERUM ETHYL ALCOHOL < 10 mg/dL
[2016-12-19 20:51] LABS: ALKALINE PHOSPHATASE 99 IU/L (3-129); GFR ESTIMATE (CALCULATED) > 59 mL/min/
[2016-12-19 20:52] LABS: UREA NITROGEN (BUN) 21 mg/dL (9-23)
[2016-12-19 23:35] VITALS: BP 137/76
== END 2016-12-19 23:37 | disposition home or self-care (01) ==
LOC: EME → EDBD 19:39 → EME 19:39
PROVIDERS: Emergency Medicine
DX: F22 Delusional disorders (principal); R45.1 Restlessness and agitation; I10 Essential (primary) hypertension; E11.9 Type 2 diabetes mellitus without complications; Z85.841 Personal history of malignant neoplasm of brain
CPT/HCPCS: 80053; 81003; 85027; 99281; 99284; G0480

== ENCOUNTER 2016-12-25 20:33 | Inpatient (IN) | payer OTHER ==
[~2016-12-25] VITALS: Ht 177.8 cm; Wt 90.3 kg
[2016-12-25 23:35] LABS: EOSINOPHIL (%) 2.1 % (0-5); EOSINOPHIL COUNT 0.1 K/uL (0-0.3); HEMATOCRIT 37.6 % (38.0-50.0); IMMATURE GRANULOCYTE (%) 0.3 % (0.0-0.7); INSTRUMENT ABS NEUTROPHIL CT 4.6 K/uL; LYMPHOCYTE COUNT 1.3 K/uL (1.0-2.8); MCH 30.9 PG (29.0-34.0); MCHC 33.2 G/DL (30.0-36.0); MCV 92.8 FL (86-99); MEAN PLAT.VOLUME 10.3 uM^3 (9.0-12.4); MONOCYTE (%) 7.4 % (3-12); MONOCYTE COUNT 0.5 K/uL (0-0.8); NEUTROPHIL (%) 69.8 % (45-76); NEUTROPHIL COUNT 4.6 K/uL (1.8-6.4); PLATELET COUNT 216 K/uL (156-360); RBC DIS.WIDTH-CV 12.8 % (11.8-14.6); RBC DIS.WIDTH-SD 43.6 % (39-53); RED BLOOD COUNT 4.05 M/uL (4.00-5.50); WHITE BLOOD COUNT 6.6 K/uL (4.1-10.2)
[2016-12-25 23:47] LABS: INTER. NORMALIZED RATIO 1.1; PROTHROMBIN TIME 11.3 (9.2-11.2); PTT 25.2 (25-32)
[2016-12-25 23:51] LABS: CHLORIDE 103 mEq/L (99-109); POTASSIUM 4.1 mEq/L (3.7-5.4); SODIUM 141 mEq/L (136-147)
[2016-12-25 23:53] LABS: GLUCOSE 128 mg/dL (70-99)
[2016-12-25 23:54] LABS: ANION GAP 13 MEQ/L (2-14)
[2016-12-25 23:56] LABS: GFR ESTIMATE (CALCULATED) > 59 mL/min/
[2016-12-25 23:57] LABS: UREA NITROGEN (BUN) 18 mg/dL (9-23)
[2016-12-26 02:09] LABS: BILIRUBIN NEGATIVE; BLOOD NEGATIVE; COLOR YELLOW ((YELLOW)); GLUCOSE (STRIP) NEGATIVE; KETONES NEGATIVE; LEUKOCYTES NEGATIVE; NITRITE NEGATIVE; PROTEIN (STRIP) NEGATIVE; SPECIFIC GRAVITY 1.013 (1.000-1.030)
[2016-12-26 02:16] LABS: ADD MIUA? NO; UCUL ADDED? NO
[2016-12-26 10:10] VITALS: BP 113/67
[2016-12-26 15:34] VITALS: BP 114/57
[2016-12-27 07:39] VITALS: BP 116/58
[2016-12-27 16:02] VITALS: BP 118/60
[2016-12-28 07:52] VITALS: BP 119/55
[2016-12-28 14:38] VITALS: BP 112/58
[2016-12-28 15:37] VITALS: BP 113/53
[2016-12-29 07:24] VITALS: BP 116/59
[2016-12-29 15:31] VITALS: BP 119/61
[2016-12-30 07:47] VITALS: BP 120/58
[2016-12-30] MEDS ORDERED: ARIPIPRAZOLE10 MG PO (09:22)
== END 2016-12-30 11:49 | disposition home or self-care (01) | DRG 885 ==
LOC: EME 20:33 → EDOF 12-26 04:52 → 1WEST 12-26 04:52
PROVIDERS: Emergency Medicine
DX: F20.1 Disorganized schizophrenia (principal); Z59.0 Homelessness; E11.9 Type 2 diabetes mellitus without complications; I10 Essential (primary) hypertension; G89.4 Chronic pain syndrome; M19.90 Unspecified osteoarthritis, unspecified site; K21.9 Gastro-esophageal reflux disease without esophagitis; J45.909 Unspecified asthma, uncomplicated
CPT/HCPCS: 70450; 72131; 73564; 73610; 74176; 80048; 81003; 85025; 85610; 85730; 90839; 97150 GO; 97166 GO; 99281; 99284

== ENCOUNTER 2017-01-04 12:32 | Emergency (ER) | payer OTHER ==
[~2017-01-04] VITALS: Ht 180.3 cm; Wt 90.1 kg
[2017-01-04 13:32] LABS: HEMATOCRIT 38.5 % (38.0-50.0); MCH 30.9 PG (29.0-34.0); MCHC 32.7 G/DL (30.0-36.0); MCV 94.4 FL (86-99); MEAN PLAT.VOLUME 10.2 uM^3 (9.0-12.4); PLATELET COUNT 219 K/uL (156-360); RBC DIS.WIDTH-CV 12.7 % (11.8-14.6); RBC DIS.WIDTH-SD 43.8 % (39-53); RED BLOOD COUNT 4.08 M/uL (4.00-5.50); WHITE BLOOD COUNT 4.7 K/uL (4.1-10.2)
[2017-01-04 13:48] LABS: CHLORIDE 106 mEq/L (99-109); POTASSIUM 4.2 mEq/L (3.7-5.4); SODIUM 141 mEq/L (136-147)
[2017-01-04 13:49] LABS: GLUCOSE 260 mg/dL (70-99)
[2017-01-04 13:51] LABS: ANION GAP 10 MEQ/L (2-14)
[2017-01-04 13:53] LABS: GFR ESTIMATE (CALCULATED) > 59 mL/min/
[2017-01-04 13:54] LABS: UREA NITROGEN (BUN) 12 mg/dL (9-23)
[2017-01-04 14:01] LABS: ADD MIUA? YES; BILIRUBIN NEGATIVE; BLOOD NEGATIVE; COLOR YELLOW ((YELLOW)); GLUCOSE (STRIP) 50; KETONES NEGATIVE; LEUKOCYTES NEGATIVE; NITRITE NEGATIVE; PROTEIN (STRIP) 100
[2017-01-04 14:13] LABS: BACTERIA NONE SEEN /HPF; EPITHELIAL CELLS RARE /HPF; HYALINE CASTS 0-5 /LPF; MUCUS 2+ /LPF; RED BLOOD CELLS 0-5 /HPF (0-5); UCUL ADDED? NO; WHITE BLOOD CELLS 0-5 /HPF (0-5)
[2017-01-04 14:40] LABS: CASTS PRESENT /LPF; CRYSTALS NONE SEEN
[2017-01-04 14:55] LABS: TROP-I INTERPRETATION NEGATIVE; TROPONIN-I < 0.01 ng/mL (0.0-0.30)
[2017-01-04] MEDS ORDERED: CLOTRIM ANTIFUN15 GM TP (15:28)
[2017-01-04 15:50] VITALS: BP 131/72
== END 2017-01-04 15:50 | disposition home or self-care (01) ==
LOC: EME 12:32
PROVIDERS: Emergency Medicine
DX: N48.1 Balanitis (principal); E11.65 Type 2 diabetes mellitus with hyperglycemia; I10 Essential (primary) hypertension; K21.9 Gastro-esophageal reflux disease without esophagitis; R56.9 Unspecified convulsions; F20.9 Schizophrenia, unspecified; G89.29 Other chronic pain; Z86.73 Personal history of transient ischemic attack (TIA), and cerebral infarction without residual deficits; Z85.841 Personal history of malignant neoplasm of brain; Z87.891 Personal history of nicotine dependence
CPT/HCPCS: 80048; 81003; 84484; 85027; 93005; 99281; 99284

== ENCOUNTER 2017-01-06 10:17 | Emergency (ER) | payer OTHER ==
[~2017-01-06] VITALS: Ht 177.8 cm; Wt 90.4 kg
[~2017-01-06 10:17] MED LIST changes: +CLOTRIM ANTIFUN15 GM TP
[2017-01-06 11:10] LABS: EOSINOPHIL (%) 1.7 % (0-5); EOSINOPHIL COUNT 0.1 K/uL (0-0.3); HEMATOCRIT 37.5 % (38.0-50.0); IMMATURE GRANULOCYTE (%) 0.4 % (0.0-0.7); INSTRUMENT ABS NEUTROPHIL CT 3.3 K/uL; LYMPHOCYTE COUNT 0.9 K/uL (1.0-2.8); MCH 30.8 PG (29.0-34.0); MCHC 32.8 G/DL (30.0-36.0); MCV 93.8 FL (86-99); MONOCYTE (%) 5.6 % (3-12); MONOCYTE COUNT 0.3 K/uL (0-0.8); NEUTROPHIL (%) 72.4 % (45-76); NEUTROPHIL COUNT 3.3 K/uL (1.8-6.4); PLATELET COUNT 230 K/uL (156-360); RBC DIS.WIDTH-CV 12.6 % (11.8-14.6); RBC DIS.WIDTH-SD 43.6 % (39-53); WHITE BLOOD COUNT 4.6 K/uL (4.1-10.2)
[2017-01-06 11:20] LABS: CHLORIDE 103 mEq/L (99-109); POTASSIUM 3.9 mEq/L (3.7-5.4); SODIUM 140 mEq/L (136-147)
[2017-01-06 11:22] LABS: GLUCOSE 245 mg/dL (70-99)
[2017-01-06 11:24] LABS: ANION GAP 10 MEQ/L (2-14); TOTAL BILIRUBIN 0.5 mg/dL (0.0-1.0)
[2017-01-06 11:26] LABS: ALKALINE PHOSPHATASE 86 IU/L (3-129); GFR ESTIMATE (CALCULATED) > 59 mL/min/
[2017-01-06 11:27] LABS: UREA NITROGEN (BUN) 18 mg/dL (9-23)
[2017-01-06 11:28] LABS: DIRECT BILIRUBIN 0.3 mg/dL (0.0-0.3)
[2017-01-06 11:29] LABS: LIPASE 16 U/L (1.0-51.0)
[2017-01-06 11:32] LABS: TROP-I INTERPRETATION NEGATIVE; TROPONIN-I < 0.01 ng/mL (0.0-0.30)
[2017-01-06] MEDS ORDERED: ZOFRAN4 MG PO (13:30)
[2017-01-06 13:40] VITALS: BP 131/76
== END 2017-01-06 13:45 | disposition home or self-care (01) ==
LOC: EME 10:17
PROVIDERS: Emergency Medicine
DX: R10.10 Upper abdominal pain, unspecified (principal); R11.10 Vomiting, unspecified; E11.9 Type 2 diabetes mellitus without complications; I10 Essential (primary) hypertension; K21.9 Gastro-esophageal reflux disease without esophagitis; R56.9 Unspecified convulsions; G89.29 Other chronic pain; Z86.73 Personal history of transient ischemic attack (TIA), and cerebral infarction without residual deficits; Z85.841 Personal history of malignant neoplasm of brain; Z79.84 Long term (current) use of oral hypoglycemic drugs; Z87.891 Personal history of nicotine dependence
CPT/HCPCS: 71260; 74177; 80048; 80076; 83690; 84484; 85025; 93005; 99281; 99285; J2405; J3010; J7030

== ENCOUNTER 2017-01-26 01:58 | Emergency (ER) | payer OTHER ==
[~2017-01-26] VITALS: Ht 177.8 cm; Wt 90.9 kg
[~2017-01-26 01:58] MED LIST changes: +ZOFRAN4 MG PO
[2017-01-26 02:38] LABS: HEMATOCRIT 37.2 % (38.0-50.0); MCHC 32.8 G/DL (30.0-36.0); MCV 94.7 FL (86-99); MEAN PLAT.VOLUME 9.6 uM^3 (9.0-12.4); PLATELET COUNT 235 K/uL (156-360); RBC DIS.WIDTH-CV 12.8 % (11.8-14.6); RED BLOOD COUNT 3.93 M/uL (4.00-5.50)
[2017-01-26 02:39] LABS: WHITE BLOOD COUNT 6.7 K/uL (4.1-10.2)
[2017-01-26 02:41] LABS: ADD MIUA? NO; BILIRUBIN NEGATIVE; BLOOD NEGATIVE; COLOR YELLOW ((YELLOW)); GLUCOSE (STRIP) NEGATIVE; KETONES 5; LEUKOCYTES NEGATIVE; NITRITE NEGATIVE; PROTEIN (STRIP) NEGATIVE; UCUL ADDED? NO
[2017-01-26 02:46] LABS: CHLORIDE 103 mEq/L (99-109); POTASSIUM 3.7 mEq/L (3.7-5.4); SODIUM 139 mEq/L (136-147)
[2017-01-26 02:48] LABS: GLUCOSE 211 mg/dL (70-99)
[2017-01-26 02:49] LABS: ANION GAP 9 MEQ/L (2-14)
[2017-01-26 02:50] LABS: TOTAL BILIRUBIN 0.4 mg/dL (0.0-1.0)
[2017-01-26 02:51] LABS: ALKALINE PHOSPHATASE 80 IU/L (3-129)
[2017-01-26 02:52] LABS: GFR ESTIMATE (CALCULATED) > 59 mL/min/
[2017-01-26 02:53] LABS: UREA NITROGEN (BUN) 18 mg/dL (9-23)
[2017-01-26 05:35] VITALS: BP 125/84
== END 2017-01-26 05:48 | disposition home or self-care (01) ==
LOC: EME 01:58
DX: R10.30 Lower abdominal pain, unspecified (principal); S39.012A Strain of muscle, fascia and tendon of lower back, initial encounter; F20.9 Schizophrenia, unspecified; E11.9 Type 2 diabetes mellitus without complications; Z79.84 Long term (current) use of oral hypoglycemic drugs; I10 Essential (primary) hypertension; Z86.73 Personal history of transient ischemic attack (TIA), and cerebral infarction without residual deficits; Z91.012 Allergy to eggs; Z91.011 Allergy to milk products; Z91.018 Allergy to other foods; Z88.2 Allergy status to sulfonamides; Z88.0 Allergy status to penicillin; Z88.1 Allergy status to other antibiotic agents; Z87.891 Personal history of nicotine dependence
CPT/HCPCS: 80053; 81003; 85027; 99281; 99284

== ENCOUNTER 2017-01-30 08:16 | Emergency (ER) | payer OTHER ==
[~2017-01-30] VITALS: Ht 177.8 cm; Wt 90.9 kg
[2017-01-30 10:24] LABS: HEMATOCRIT 35.2 % (38.0-50.0); MCH 31.3 PG (29.0-34.0); MCHC 32.7 G/DL (30.0-36.0); MCV 95.9 FL (86-99); MEAN PLAT.VOLUME 10.6 uM^3 (9.0-12.4); PLATELET COUNT 202 K/uL (156-360); RBC DIS.WIDTH-SD 45.8 % (39-53); RED BLOOD COUNT 3.67 M/uL (4.00-5.50)
[2017-01-30 10:25] LABS: WHITE BLOOD COUNT 4.6 K/uL (4.1-10.2)
[2017-01-30 10:33] LABS: CHLORIDE 106 mEq/L (99-109); POTASSIUM 4.2 mEq/L (3.7-5.4); SODIUM 143 mEq/L (136-147)
[2017-01-30 10:34] LABS: GLUCOSE 169 mg/dL (70-99)
[2017-01-30 10:39] LABS: ANION GAP 11 MEQ/L (2-14); GFR ESTIMATE (CALCULATED) > 59 mL/min/; UREA NITROGEN (BUN) 16 mg/dL (9-23)
[2017-01-30 10:42] LABS: ADD MIUA? YES; BILIRUBIN SMALL; BLOOD NEGATIVE; COLOR AMBER ((YELLOW)); GLUCOSE (STRIP) 50; KETONES 20; LEUKOCYTES NEGATIVE; NITRITE NEGATIVE; PROTEIN (STRIP) 30; SPECIFIC GRAVITY 1.029 (1.000-1.030)
[2017-01-30 10:47] LABS: BACTERIA NONE SEEN /HPF; EPITHELIAL CELLS RARE /HPF; MUCUS 4+ /LPF; RED BLOOD CELLS 0-5 /HPF (0-5); WHITE BLOOD CELLS 0-5 /HPF (0-5)
[2017-01-30 10:53] LABS: ALKALINE PHOSPHATASE 80 IU/L (3-129)
[2017-01-30 10:54] LABS: TOTAL BILIRUBIN 0.6 mg/dL (0.0-1.0)
[2017-01-30 10:55] LABS: DIRECT BILIRUBIN 0.3 mg/dL (0.0-0.3)
[2017-01-30 10:56] LABS: LIPASE 15 U/L (1.0-51.0)
[2017-01-30 10:57] LABS: CREATINE KINASE 283 IU/L (1-294)
[2017-01-30 11:04] LABS: TROP-I INTERPRETATION NEGATIVE; TROPONIN-I < 0.01 ng/mL (0.0-0.30)
[2017-01-30 11:50] VITALS: BP 126/67
== END 2017-01-30 11:51 | disposition home or self-care (01) ==
LOC: EME 08:16
PROVIDERS: Nurse Practitioner Family
DX: M25.571 Pain in right ankle and joints of right foot (principal); M25.572 Pain in left ankle and joints of left foot; F20.9 Schizophrenia, unspecified; G89.29 Other chronic pain; I10 Essential (primary) hypertension; K21.9 Gastro-esophageal reflux disease without esophagitis; Z86.73 Personal history of transient ischemic attack (TIA), and cerebral infarction without residual deficits; E11.9 Type 2 diabetes mellitus without complications; F32.9 Major depressive disorder, single episode, unspecified; Z87.891 Personal history of nicotine dependence; R07.2 Precordial pain
CPT/HCPCS: 71020; 73610; 80048; 80076; 81003; 82550; 83690; 84484; 85027; 93005; 99281; 99285

== ENCOUNTER 2017-02-02 02:37 | Emergency (ER) | payer OTHER ==
[~2017-02-02] VITALS: Ht 177.8 cm; Wt 90.8 kg
[2017-02-02 04:30] VITALS: BP 149/79
== END 2017-02-02 04:46 | disposition home or self-care (01) ==
LOC: EME 02:37
DX: S20.212A Contusion of left front wall of thorax, initial encounter (principal); S20.211A Contusion of right front wall of thorax, initial encounter; Y08.02XA Assault by strike by baseball bat, initial encounter; Y92.129 Unspecified place in nursing home as the place of occurrence of the external cause; E11.9 Type 2 diabetes mellitus without complications; Z79.84 Long term (current) use of oral hypoglycemic drugs; Z59.0 Homelessness
CPT/HCPCS: 71020; 99281; 99284

== ENCOUNTER 2017-02-03 00:56 | Emergency (ER) | payer OTHER ==
[~2017-02-03] VITALS: Ht 177.8 cm; Wt 90.8 kg
[2017-02-03 02:04] LABS: HEMATOCRIT 36.2 % (38.0-50.0); MCH 31.1 PG (29.0-34.0); MCHC 32.3 G/DL (30.0-36.0); MCV 96.3 FL (86-99); MEAN PLAT.VOLUME 9.8 uM^3 (9.0-12.4); PLATELET COUNT 219 K/uL (156-360); RBC DIS.WIDTH-CV 12.8 % (11.8-14.6); RED BLOOD COUNT 3.76 M/uL (4.00-5.50); WHITE BLOOD COUNT 4.8 K/uL (4.1-10.2)
[2017-02-03 02:12] LABS: CHLORIDE 105 mEq/L (99-109); POTASSIUM 4.1 mEq/L (3.7-5.4); SODIUM 140 mEq/L (136-147)
[2017-02-03 02:14] LABS: GLUCOSE 256 mg/dL (70-99)
[2017-02-03 02:16] LABS: ANION GAP 8 MEQ/L (2-14)
[2017-02-03 02:17] LABS: TOTAL BILIRUBIN 0.3 mg/dL (0.0-1.0)
[2017-02-03 02:18] LABS: ALKALINE PHOSPHATASE 75 IU/L (3-129); GFR ESTIMATE (CALCULATED) > 59 mL/min/
[2017-02-03 02:19] LABS: UREA NITROGEN (BUN) 14 mg/dL (9-23)
[2017-02-03 02:52] LABS: ADD MIUA? YES; BILIRUBIN NEGATIVE; BLOOD NEGATIVE; COLOR YELLOW ((YELLOW)); GLUCOSE (STRIP) 150; KETONES NEGATIVE; LEUKOCYTES NEGATIVE; NITRITE NEGATIVE; PROTEIN (STRIP) NEGATIVE; SPECIFIC GRAVITY 1.025 (1.000-1.030)
[2017-02-03 03:00] LABS: BACTERIA NONE SEEN /HPF; EPITHELIAL CELLS NONE SEEN /HPF; MUCUS TRACE /LPF; UCUL ADDED? NO; WHITE BLOOD CELLS 0-5 /HPF (0-5)
[2017-02-03 03:58] VITALS: BP 147/72
== END 2017-02-03 03:58 | disposition home or self-care (01) ==
LOC: EME 00:56
PROVIDERS: Emergency Medicine
DX: R10.9 Unspecified abdominal pain (principal); R07.89 Other chest pain; F20.9 Schizophrenia, unspecified; I10 Essential (primary) hypertension; E11.9 Type 2 diabetes mellitus without complications; R11.2 Nausea with vomiting, unspecified; Z91.14 Patient's other noncompliance with medication regimen
CPT/HCPCS: 71020; 74176; 80053; 81003; 85027; 90839; 93005; 99281; 99283; J1885

== ENCOUNTER 2017-02-14 14:14 | Emergency (ER) | payer OTHER ==
[~2017-02-14] VITALS: Ht 172.7 cm; Wt 89.5 kg
[2017-02-14 14:21] VITALS: BP 125/59
== END 2017-02-14 15:34 | disposition home or self-care (01) ==
LOC: EME 14:14
DX: S93.402A Sprain of unspecified ligament of left ankle, initial encounter (principal); X50.0XXA Overexertion from strenuous movement or load, initial encounter; Y93.01 Activity, walking, marching and hiking; F20.9 Schizophrenia, unspecified; J45.909 Unspecified asthma, uncomplicated; I10 Essential (primary) hypertension; E11.9 Type 2 diabetes mellitus without complications; K21.9 Gastro-esophageal reflux disease without esophagitis
CPT/HCPCS: 73610; 99281; 99283

== ENCOUNTER 2017-02-17 11:25 | Emergency (ER) | payer OTHER ==
[~2017-02-17] VITALS: Ht 177.8 cm; Wt 77.0 kg
[2017-02-17] MEDS ORDERED: MOTRIN800 MG PO (14:03)
[2017-02-17 14:18] VITALS: BP 122/63
[2017-02-18] MEDS ORDERED: MOTRIN800 MG PO (13:50)
== END 2017-02-17 14:21 | disposition home or self-care (01) ==
LOC: EME 11:25
DX: S90.00XA Contusion of unspecified ankle, initial encounter (principal); Y08.02XA Assault by strike by baseball bat, initial encounter; Y92.049 Unspecified place in boarding-house as the place of occurrence of the external cause; M25.572 Pain in left ankle and joints of left foot; M25.571 Pain in right ankle and joints of right foot; Z87.891 Personal history of nicotine dependence
CPT/HCPCS: 73610; 99281; 99284

== ENCOUNTER 2017-02-18 12:59 | Emergency (ER) | payer OTHER ==
[~2017-02-18] VITALS: Ht 177.8 cm; Wt 77.0 kg
[~2017-02-18 12:59] MED LIST changes: +MOTRIN800 MG PO
[2017-02-18] MEDS ORDERED: MOTRIN800 MG PO (13:50)
[2017-02-18 14:18] VITALS: BP 95/44
== END 2017-02-18 14:19 | disposition home or self-care (01) ==
LOC: EXP 12:59 → EME 12:59 → EXP 14:19
DX: S70.01XA Contusion of right hip, initial encounter (principal); W18.30XA Fall on same level, unspecified, initial encounter; Y92.414 Local residential or business street as the place of occurrence of the external cause; E11.9 Type 2 diabetes mellitus without complications; I10 Essential (primary) hypertension; K21.9 Gastro-esophageal reflux disease without esophagitis; R56.9 Unspecified convulsions; Z86.73 Personal history of transient ischemic attack (TIA), and cerebral infarction without residual deficits; Z87.891 Personal history of nicotine dependence
CPT/HCPCS: 87420; 99281; 99284

== ENCOUNTER 2017-02-21 07:37 | Inpatient (IN) | payer OTHER ==
[~2017-02-21] VITALS: Ht 172.7 cm; Wt 88.0 kg
[2017-02-21 08:09] LABS: HEMATOCRIT 35.3 % (38.0-50.0); MCH 30.2 PG (29.0-34.0); MCV 94.4 FL (86-99); MEAN PLAT.VOLUME 9.5 uM^3 (9.0-12.4); PLATELET COUNT 265 K/uL (156-360); RBC DIS.WIDTH-CV 12.2 % (11.8-14.6); RBC DIS.WIDTH-SD 42.5 % (39-53); RED BLOOD COUNT 3.74 M/uL (4.00-5.50)
[2017-02-21 08:11] LABS: WHITE BLOOD COUNT 9.5 K/uL (4.1-10.2)
[2017-02-21 08:42] LABS: ANION GAP 8 MEQ/L (2-14); CHLORIDE 98 MEQ/L (99-109); POTASSIUM 4.4 MEQ/L (3.7-5.4); SAMPLE HEMOLYSIS CHECK 0; SAMPLE ICTERIC CHECK 0; SAMPLE LIPEMIA CHECK 0; SODIUM 137 MEQ/L (136-147); TOTAL BILIRUBIN 0.5 MG/DL (0.0-1.0)
[2017-02-21 08:48] LABS: ALKALINE PHOSPHATASE 66 IU/L (3-129); GFR ESTIMATE (CALCULATED) > 59 mL/min/; GLUCOSE 213 mg/dL (70-99); SERUM ETHYL ALCOHOL < 10 mg/dL; UREA NITROGEN (BUN) 22 mg/dL (9-23)
[2017-02-21 09:32] LABS: ADD MIUA? YES; BILIRUBIN NEGATIVE; BLOOD NEGATIVE; COLOR YELLOW ((YELLOW)); GLUCOSE (STRIP) 50; KETONES NEGATIVE; LEUKOCYTES NEGATIVE; NITRITE NEGATIVE; PROTEIN (STRIP) NEGATIVE; SPECIFIC GRAVITY 1.016 (1.000-1.030)
[2017-02-21 09:39] LABS: BACTERIA RARE /HPF; EPITHELIAL CELLS RARE /HPF; MUCUS NONE SEEN /LPF; RED BLOOD CELLS 0-5 /HPF (0-5); UCUL ADDED? NO; WHITE BLOOD CELLS 20-30 /HPF (0-5)
[2017-02-21 09:41] LABS: AMPHETAMINE NEGATIVE (500 ng/mL); BARBITURATES NEGATIVE (200 ng/mL); BENZODIAZEPINES NEGATIVE (150 ng/mL); COCAINE NEGATIVE (150 ng/mL); INTERNAL CONTROLS VALID? YES; METHADONE NEGATIVE (200 ng/mL); METHAMPHETAMINE NEGATIVE (500 ng/mL); OPIATES (MORPHINE) NEGATIVE (100 ng/mL); OXYCODONE NEGATIVE (100 ng/mL); PHENCYCLIDINE NEGATIVE (25 ng/mL); PROPOXYPHENE NEGATIVE (300 ng/mL); THC CANNABINOIDS NEGATIVE (50 ng/mL); TRICYCLIC ANTIDEPRESSANTS NEGATIVE (300 ng/mL)
[2017-02-21] MEDS ORDERED: FLOVENT DISKUS1 DIS1 IH (10:48)
[2017-02-21] MEDS ORDERED: VENTOLIN HFA18 GM IH (10:48)
[2017-02-21] MEDS ORDERED: PRILOSEC20 MG PO (10:48)
[2017-02-21] MEDS ORDERED: MULTI-VITAMIN1 EAC4 PO (10:49)
[2017-02-21] MEDS ORDERED: DEPAKOTE500 MG PO (10:53)
[2017-02-21 11:58] VITALS: BP 125/58
[2017-02-21 12:01] VITALS: BP 125/58
[2017-02-21 15:41] VITALS: BP 124/54
[2017-02-22 07:48] VITALS: BP 116/57
[2017-02-22 15:02] VITALS: BP 84/44
[2017-02-22 18:09] VITALS: BP 100/55
[2017-02-23 07:44] VITALS: BP 103/53
[2017-02-23 15:09] VITALS: BP 107/47
[2017-02-23 23:39] LABS: POINT-OF-CARE METER ID UU13113830; POINT-OF-CARE USER ID BHSSMG
[2017-02-24 01:50] VITALS: BP 113/57
[2017-02-24 01:55] LABS: POINT-OF-CARE METER ID UU13113830; POINT-OF-CARE USER ID BHSSMG
[2017-02-25 21:42] LABS: CHLORIDE 102 MEQ/L (99-109); GFR ESTIMATE (CALCULATED) > 59 mL/min/; GLUCOSE 170 mg/dL (70-99); POTASSIUM 4.4 MEQ/L (3.7-5.4); SODIUM 140 MEQ/L (136-147); UREA NITROGEN (BUN) 13 mg/dL (9-23)
[2017-02-25 21:43] LABS: HEMATOCRIT 31.6 % (38.0-50.0); MCH 31.4 PG (29.0-34.0); MCHC 32.9 G/DL (30.0-36.0); MCV 95.5 FL (86-99); MEAN PLAT.VOLUME 10.5 uM^3 (9.0-12.4); PLATELET COUNT 306 K/uL (156-360); RBC DIS.WIDTH-CV 11.9 % (11.8-14.6); RBC DIS.WIDTH-SD 41.5 % (39-53); RED BLOOD COUNT 3.31 M/uL (4.00-5.50)
== END 2017-02-24 04:05 | DRG 885 ==
LOC: EME 07:37 → EDOF 09:46 → 1WEST 09:46
PROVIDERS: Emergency Medicine; Psychiatry & Neurology Psychiatry; Thoracic Surgery (Cardiothoracic Vascular Surgery)
DX: F20.0 Paranoid schizophrenia (principal); J45.909 Unspecified asthma, uncomplicated; I10 Essential (primary) hypertension; E11.9 Type 2 diabetes mellitus without complications; K21.9 Gastro-esophageal reflux disease without esophagitis; R45.851 Suicidal ideations; L02.31 Cutaneous abscess of buttock
CPT/HCPCS: 80048; 80053; 81003; 82948; 85027; 87070; 87075; 87077; 87147; 87186; 87205; 90839; 94640; 94640 76; 99202; 99281; 99285; G0480; J0330; J1100; J1335; J2405; J2710; J3010

== ENCOUNTER 2017-02-24 04:05 | Inpatient (IN) | payer OTHER ==
[~2017-02-24] VITALS: Ht 172.7 cm; Wt 94.1 kg
[~2017-02-24 04:05] MED LIST changes: +FLOVENT DISKUS1 DIS1 IH; +MULTI-VITAMIN1 EAC4 PO
[2017-02-24 07:35] VITALS: BP 110/54
[2017-02-24 11:21] VITALS: BP 121/65
[2017-02-24 15:25] VITALS: BP 119/65
[2017-02-24 15:45] VITALS: BP 116/60
[2017-02-24 19:39] VITALS: BP 115/62
[2017-02-24 23:02] VITALS: BP 113/62
[2017-02-25 03:43] VITALS: BP 102/54
[2017-02-25 08:00] LABS: HEMATOCRIT 31.6 % (38.0-50.0); MCH 31.4 PG (29.0-34.0); MCHC 32.9 G/DL (30.0-36.0); MCV 95.5 FL (86-99); MEAN PLAT.VOLUME 10.5 uM^3 (9.0-12.4); PLATELET COUNT 306 K/uL (156-360); RBC DIS.WIDTH-CV 11.9 % (11.8-14.6); RBC DIS.WIDTH-SD 41.5 % (39-53); RED BLOOD COUNT 3.31 M/uL (4.00-5.50)
[2017-02-25 08:07] VITALS: BP 109/53
[2017-02-25 08:25] LABS: ANION GAP 7 MEQ/L (2-14); CHLORIDE 102 MEQ/L (99-109); GFR ESTIMATE (CALCULATED) > 59 mL/min/; GLUCOSE 170 mg/dL (70-99); POTASSIUM 4.4 MEQ/L (3.7-5.4); SAMPLE HEMOLYSIS CHECK 0; SAMPLE ICTERIC CHECK 0; SAMPLE LIPEMIA CHECK 0; SODIUM 140 MEQ/L (136-147); UREA NITROGEN (BUN) 13 mg/dL (9-23)
[2017-02-25 11:50] VITALS: BP 111/55
[2017-02-25 16:27] VITALS: BP 94/50
[2017-02-25 22:44] VITALS: BP 119/61
[2017-02-25 23:25] VITALS: BP 146/65
[2017-02-26 08:21] VITALS: BP 123/60
[2017-02-26 17:22] VITALS: BP 113/58
[2017-02-27 01:48] VITALS: BP 129/66
[2017-02-27 06:35] LABS: HEMATOCRIT 32.2 % (38.0-50.0); MCH 30.9 PG (29.0-34.0); MCHC 32.3 G/DL (30.0-36.0); MCV 95.5 FL (86-99); MEAN PLAT.VOLUME 9.8 uM^3 (9.0-12.4); PLATELET COUNT 297 K/uL (156-360); RBC DIS.WIDTH-CV 11.9 % (11.8-14.6); RBC DIS.WIDTH-SD 41.4 % (39-53); RED BLOOD COUNT 3.37 M/uL (4.00-5.50); WHITE BLOOD COUNT 5.4 K/uL (4.1-10.2)
[2017-02-27 06:55] VITALS: BP 118/64
[2017-02-27] MEDS ORDERED: CLEOCIN150 MG PO (13:33)
[2017-02-27] MEDS ORDERED: ABILIFY20 MG PO (15:51)
== END 2017-02-27 13:56 | DRG 982 ==
LOC: SDC 04:05 → 2SOUTH 05:43 → 5EAST 05:43
PROVIDERS: Surgery; Thoracic Surgery (Cardiothoracic Vascular Surgery)
PROC: 0JDB3ZZ Extraction of Perineum Subcutaneous Tissue and Fascia, Percutaneous Approach (ICD-10-PCS; principal; 2017-02-26)
DX: K61.3 Ischiorectal abscess (principal); I96 Gangrene, not elsewhere classified; F20.0 Paranoid schizophrenia; I10 Essential (primary) hypertension; B95.62 Methicillin resistant Staphylococcus aureus infection as the cause of diseases classified elsewhere; J45.909 Unspecified asthma, uncomplicated; E11.9 Type 2 diabetes mellitus without complications; K21.9 Gastro-esophageal reflux disease without esophagitis; Z88.0 Allergy status to penicillin
CPT/HCPCS: 80048 91; 80170; 80202; 82565; 82948; 85027; 94640; 94640 76; 99202; J0131; J1170; J1580; J1644; J3010; J3370; J7050; J7120

== ENCOUNTER 2017-02-27 13:37 | Inpatient (IN) | payer OTHER ==
[~2017-02-27] VITALS: Ht 182.9 cm; Wt 88.5 kg
[~2017-02-27 13:37] MED LIST changes: +CLEOCIN150 MG PO
[2017-02-27 14:33] VITALS: BP 120/69
[2017-02-27] MEDS ORDERED: ABILIFY20 MG PO (15:51)
[2017-02-27 15:52] VITALS: BP 120/69
[2017-02-28 07:48] VITALS: BP 88/53
[2017-02-28 11:00] VITALS: BP 127/56
[2017-02-28 15:51] VITALS: BP 113/53
[2017-03-01 08:02] VITALS: BP 130/62
[2017-03-01 16:03] VITALS: BP 104/52
[2017-03-02 07:38] VITALS: BP 114/50
[2017-03-02 15:23] VITALS: BP 97/46
[2017-03-02 17:55] VITALS: BP 106/53
[2017-03-03 07:55] VITALS: BP 118/57
[2017-03-03 10:45] LABS: EOSINOPHIL (%) 3.4 % (0-5); EOSINOPHIL COUNT 0.2 K/uL (0-0.3); HEMATOCRIT 36.7 % (38.0-50.0); IMMATURE GRANULOCYTE (%) 0.5 % (0.0-0.7); INSTRUMENT ABS NEUTROPHIL CT 3.9 K/uL; LYMPHOCYTE COUNT 1.2 K/uL (1.0-2.8); MCHC 32.4 G/DL (30.0-36.0); MCV 95.6 FL (86-99); MEAN PLAT.VOLUME 9.8 uM^3 (9.0-12.4); MONOCYTE (%) 5.7 % (3-12); MONOCYTE COUNT 0.3 K/uL (0-0.8); NEUTROPHIL (%) 68.8 % (45-76); NEUTROPHIL COUNT 3.9 K/uL (1.8-6.4); PLATELET COUNT 305 K/uL (156-360); RBC DIS.WIDTH-CV 12.6 % (11.8-14.6); RBC DIS.WIDTH-SD 42.6 % (39-53); RED BLOOD COUNT 3.84 M/uL (4.00-5.50); WHITE BLOOD COUNT 5.6 K/uL (4.1-10.2)
[2017-03-03 15:50] VITALS: BP 123/55
[2017-03-04 07:40] VITALS: BP 120/60
[2017-03-04 15:01] VITALS: BP 111/53
[2017-03-04 16:39] LABS: POINT-OF-CARE METER ID UU13113830; POINT-OF-CARE USER ID BHSMRC
[2017-03-05 07:26] VITALS: BP 112/65
[2017-03-05 15:33] VITALS: BP 120/59
[2017-03-06 07:36] VITALS: BP 117/59
[2017-03-06 15:45] VITALS: BP 128/60
[2017-03-07 07:29] VITALS: BP 97/52
[2017-03-07 16:09] VITALS: BP 119/57
[2017-03-08 07:41] VITALS: BP 108/52
[2017-03-08 15:16] VITALS: BP 111/56
[2017-03-09 07:32] VITALS: BP 112/57
[2017-03-09 15:39] VITALS: BP 103/57
[2017-03-10 07:36] VITALS: BP 126/59
[2017-03-10 09:53] LABS: EOSINOPHIL (%) 3.5 % (0-5); EOSINOPHIL COUNT 0.2 K/uL (0-0.3); HEMATOCRIT 38.6 % (38.0-50.0); IMMATURE GRANULOCYTE (%) 0.4 % (0.0-0.7); INSTRUMENT ABS NEUTROPHIL CT 3.7 K/uL; LYMPHOCYTE COUNT 0.8 K/uL (1.0-2.8); MCH 30.5 PG (29.0-34.0); MCHC 32.1 G/DL (30.0-36.0); MCV 94.8 FL (86-99); MEAN PLAT.VOLUME 10.5 uM^3 (9.0-12.4); MONOCYTE (%) 4.5 % (3-12); MONOCYTE COUNT 0.2 K/uL (0-0.8); NEUTROPHIL (%) 74.7 % (45-76); NEUTROPHIL COUNT 3.7 K/uL (1.8-6.4); PLATELET COUNT 231 K/uL (156-360); RBC DIS.WIDTH-CV 13.1 % (11.8-14.6); RBC DIS.WIDTH-SD 44.6 % (39-53); RED BLOOD COUNT 4.07 M/uL (4.00-5.50); WHITE BLOOD COUNT 4.9 K/uL (4.1-10.2)
[2017-03-10 15:09] VITALS: BP 124/60
[2017-03-11 07:30] VITALS: BP 125/58
[2017-03-11 16:21] VITALS: BP 136/70
[2017-03-11 17:58] LABS: BACTERIA NONE SEEN /HPF; EPITHELIAL CELLS NONE SEEN /HPF; MUCUS NONE SEEN /LPF; RED BLOOD CELLS 0-5 /HPF (0-5); WHITE BLOOD CELLS 0-5 /HPF (0-5)
[2017-03-12 07:48] VITALS: BP 108/53
[2017-03-12 15:29] VITALS: BP 117/56
[2017-03-13 08:02] VITALS: BP 113/58
[2017-03-13 15:18] VITALS: BP 107/60
[2017-03-14 07:47] VITALS: BP 117/64
[2017-03-14 15:31] VITALS: BP 112/68
[2017-03-15 07:50] VITALS: BP 115/57
[2017-03-15 15:40] VITALS: BP 103/55
[2017-03-16 07:25] VITALS: BP 106/53
[2017-03-16 15:39] VITALS: BP 109/58
[2017-03-17 07:53] VITALS: BP 130/72
[2017-03-17 15:31] VITALS: BP 102/50
[2017-03-17 18:31] LABS: EOSINOPHIL (%) 9.9 % (0-5); EOSINOPHIL COUNT 0.5 K/uL (0-0.3); HEMATOCRIT 38.7 % (38.0-50.0); IMMATURE GRANULOCYTE (%) 0.4 % (0.0-0.7); INSTRUMENT ABS NEUTROPHIL CT 2.7 K/uL; LYMPHOCYTE COUNT 1.1 K/uL (1.0-2.8); MCH 30.8 PG (29.0-34.0); MCHC 32.3 G/DL (30.0-36.0); MCV 95.3 FL (86-99); MEAN PLAT.VOLUME 10.6 uM^3 (9.0-12.4); MONOCYTE (%) 8.4 % (3-12); MONOCYTE COUNT 0.4 K/uL (0-0.8); NEUTROPHIL (%) 56.7 % (45-76); NEUTROPHIL COUNT 2.7 K/uL (1.8-6.4); PLATELET COUNT 196 K/uL (156-360); RBC DIS.WIDTH-CV 13.8 % (11.8-14.6); RBC DIS.WIDTH-SD 48.5 % (39-53); RED BLOOD COUNT 4.06 M/uL (4.00-5.50); WHITE BLOOD COUNT 4.7 K/uL (4.1-10.2)
[2017-03-18 07:46] VITALS: BP 118/56
[2017-03-18] MEDS ORDERED: SANTYL30 GM TP (14:56)
[2017-03-18] MEDS ORDERED: GABAPENTIN300 MG PO (14:56)
[2017-03-18] MEDS ORDERED: CLOZAPINE100 MG PO (14:56)
[2017-03-18 15:19] VITALS: BP 139/63
== END 2017-03-18 16:33 | DRG 885 ==
LOC: 1WEST 13:37
PROVIDERS: Psychiatry & Neurology Psychiatry
DX: F20.0 Paranoid schizophrenia (principal); K61.3 Ischiorectal abscess; I10 Essential (primary) hypertension; E11.9 Type 2 diabetes mellitus without complications; K21.9 Gastro-esophageal reflux disease without esophagitis
CPT/HCPCS: 81015; 82948; 85025; 94640; 94640 76; 94760; 97150 GO; 97165 GO; 97166 GO; 99202; J2794

== ENCOUNTER 2017-04-15 11:47 | Emergency (ER) | payer OTHER ==
[~2017-04-15] VITALS: Ht 175.3 cm; Wt 87.0 kg
[~2017-04-15 11:47] MED LIST changes: +ABILIFY20 MG PO; +CLOZAPINE100 MG PO; +GABAPENTIN300 MG PO; +SANTYL30 GM TP
[2017-04-15 13:23] LABS: HEMATOCRIT 43.2 % (38.0-50.0); MCH 30.3 PG (29.0-34.0); MCHC 32.6 G/DL (30.0-36.0); MCV 92.9 FL (86-99); MEAN PLAT.VOLUME 10.2 uM^3 (9.0-12.4); PLATELET COUNT 254 K/uL (156-360); RBC DIS.WIDTH-CV 13.4 % (11.8-14.6); RBC DIS.WIDTH-SD 45.6 % (39-53); RED BLOOD COUNT 4.65 M/uL (4.00-5.50); WHITE BLOOD COUNT 6.9 K/uL (4.1-10.2)
[2017-04-15 13:33] LABS: CHLORIDE 100 mEq/L (99-109); POTASSIUM 4.2 mEq/L (3.7-5.4); SODIUM 138 mEq/L (136-147)
[2017-04-15 13:35] LABS: GLUCOSE 216 mg/dL (70-99)
[2017-04-15 13:37] LABS: ANION GAP 13 MEQ/L (2-14)
[2017-04-15 13:38] LABS: SERUM ETHYL ALCOHOL < 10 mg/dL
[2017-04-15 13:39] LABS: GFR ESTIMATE (CALCULATED) > 59 mL/min/
[2017-04-15 13:40] LABS: UREA NITROGEN (BUN) 17 mg/dL (9-23)
[2017-04-15 16:50] LABS: AMPHETAMINE NEGATIVE (500 ng/mL); BARBITURATES NEGATIVE (200 ng/mL); BENZODIAZEPINES NEGATIVE (150 ng/mL); COCAINE NEGATIVE (150 ng/mL); INTERNAL CONTROLS VALID? YES; METHADONE NEGATIVE (200 ng/mL); METHAMPHETAMINE NEGATIVE (500 ng/mL); OPIATES (MORPHINE) NEGATIVE (100 ng/mL); OXYCODONE NEGATIVE (100 ng/mL); PHENCYCLIDINE NEGATIVE (25 ng/mL); PROPOXYPHENE NEGATIVE (300 ng/mL); THC CANNABINOIDS NEGATIVE (50 ng/mL); TRICYCLIC ANTIDEPRESSANTS NEGATIVE (300 ng/mL)
[2017-04-15 19:10] VITALS: BP 119/66
== END 2017-04-15 19:24 | disposition home or self-care (01) ==
LOC: EME 11:47
DX: F25.9 Schizoaffective disorder, unspecified (principal); E11.9 Type 2 diabetes mellitus without complications; I10 Essential (primary) hypertension; Z91.14 Patient's other noncompliance with medication regimen; K21.9 Gastro-esophageal reflux disease without esophagitis; Z86.73 Personal history of transient ischemic attack (TIA), and cerebral infarction without residual deficits; Z88.0 Allergy status to penicillin; Z87.891 Personal history of nicotine dependence; Z88.2 Allergy status to sulfonamides
CPT/HCPCS: 80048; 85027; 90839; 99281; 99284; G0480

== ENCOUNTER 2017-04-18 20:45 | Emergency (ER) | payer OTHER ==
[~2017-04-18] VITALS: Ht 182.9 cm; Wt 82.0 kg
[2017-04-18 21:02] LABS: HEMATOCRIT 43.4 % (38.0-50.0); MCH 30.7 PG (29.0-34.0); MCHC 33.4 G/DL (30.0-36.0); MCV 91.9 FL (86-99); MEAN PLAT.VOLUME 10.4 uM^3 (9.0-12.4); PLATELET COUNT 256 K/uL (156-360); RBC DIS.WIDTH-CV 13.5 % (11.8-14.6); RBC DIS.WIDTH-SD 45.9 % (39-53); RED BLOOD COUNT 4.72 M/uL (4.00-5.50); WHITE BLOOD COUNT 5.5 K/uL (4.1-10.2)
[2017-04-18 21:10] LABS: CHLORIDE 101 mEq/L (99-109); POTASSIUM 4.1 mEq/L (3.7-5.4); SODIUM 141 mEq/L (136-147)
[2017-04-18 21:11] LABS: AMYLASE 59 IU/L (1-118)
[2017-04-18 21:12] LABS: GLUCOSE 194 mg/dL (70-99)
[2017-04-18 21:13] LABS: ANION GAP 17 MEQ/L (2-14)
[2017-04-18 21:14] LABS: TOTAL BILIRUBIN 1.3 mg/dL (0.0-1.0)
[2017-04-18 21:15] LABS: SERUM ETHYL ALCOHOL < 10 mg/dL
[2017-04-18 21:16] LABS: ALKALINE PHOSPHATASE 137 IU/L (3-129); GFR ESTIMATE (CALCULATED) > 59 mL/min/
[2017-04-18 21:17] LABS: UREA NITROGEN (BUN) 25 mg/dL (9-23)
[2017-04-18 21:19] LABS: LIPASE 31 U/L (1.0-51.0)
[2017-04-18 21:59] LABS: ADD MIUA? YES; BILIRUBIN SMALL; BLOOD NEGATIVE; COLOR AMBER ((YELLOW)); GLUCOSE (STRIP) NEGATIVE; KETONES 80; LEUKOCYTES NEGATIVE; NITRITE NEGATIVE; PROTEIN (STRIP) 100; SPECIFIC GRAVITY 1.025 (1.000-1.030)
[2017-04-18 22:08] LABS: AMPHETAMINE NEGATIVE (500 ng/mL); BARBITURATES NEGATIVE (200 ng/mL); BENZODIAZEPINES NEGATIVE (150 ng/mL); COCAINE NEGATIVE (150 ng/mL); INTERNAL CONTROLS VALID? YES; METHADONE NEGATIVE (200 ng/mL); METHAMPHETAMINE NEGATIVE (500 ng/mL); OPIATES (MORPHINE) NEGATIVE (100 ng/mL); OXYCODONE NEGATIVE (100 ng/mL); PHENCYCLIDINE NEGATIVE (25 ng/mL); PROPOXYPHENE NEGATIVE (300 ng/mL); THC CANNABINOIDS NEGATIVE (50 ng/mL); TRICYCLIC ANTIDEPRESSANTS NEGATIVE (300 ng/mL)
[2017-04-18 22:19] LABS: BACTERIA 1+ /HPF; CASTS PRESENT /LPF; CRYSTALS NONE SEEN; EPITHELIAL CELLS RARE /HPF; FINE GRANULAR CASTS 0-5 /LPF; MUCUS 3+ /LPF; RED BLOOD CELLS NONE SEEN /HPF (0-5); UCUL ADDED? NO; WHITE BLOOD CELLS 0-5 /HPF (0-5)
[2017-04-19 01:35] VITALS: BP 126/76
== END 2017-04-19 01:36 | disposition home or self-care (01) ==
LOC: EME 20:45
DX: R10.84 Generalized abdominal pain (principal); R51 Headache; R55 Syncope and collapse; I10 Essential (primary) hypertension; E11.9 Type 2 diabetes mellitus without complications; K21.9 Gastro-esophageal reflux disease without esophagitis; Z86.73 Personal history of transient ischemic attack (TIA), and cerebral infarction without residual deficits; F32.9 Major depressive disorder, single episode, unspecified; Z87.891 Personal history of nicotine dependence; Z88.0 Allergy status to penicillin
CPT/HCPCS: 70450; 80053; 81003; 82150; 83690; 85027; 99281; 99285; G0480; J7030

== ENCOUNTER 2017-04-25 07:54 | Emergency (ER) | payer OTHER ==
[~2017-04-25] VITALS: Ht 172.7 cm; Wt 86.3 kg
[2017-04-25] MEDS ORDERED: MOTRIN800 MG PO (09:49)
[2017-04-25 10:06] VITALS: BP 120/76
== END 2017-04-25 10:06 | disposition home or self-care (01) ==
LOC: EME 07:54
DX: S00.03XA Contusion of scalp, initial encounter (principal); S90.112A Contusion of left great toe without damage to nail, initial encounter; Y00.XXXA Assault by blunt object, initial encounter; R68.84 Jaw pain; K21.9 Gastro-esophageal reflux disease without esophagitis; I10 Essential (primary) hypertension; E11.9 Type 2 diabetes mellitus without complications; E78.00 Pure hypercholesterolemia, unspecified; Z88.0 Allergy status to penicillin; Z88.2 Allergy status to sulfonamides
CPT/HCPCS: 73660; 99281; 99282

== ENCOUNTER 2017-05-06 00:06 | Inpatient (IN) | payer OTHER ==
[~2017-05-06] VITALS: Ht 177.8 cm; Wt 84.6 kg
[2017-05-06 04:02] LABS: EOSINOPHIL (%) 3.5 % (0-5); EOSINOPHIL COUNT 0.2 K/uL (0-0.3); HEMATOCRIT 35.3 % (38.0-50.0); IMMATURE GRANULOCYTE (%) 0.4 % (0.0-0.7); INSTRUMENT ABS NEUTROPHIL CT 3.3 K/uL; LYMPHOCYTE COUNT 1.5 K/uL (1.0-2.8); MCH 31.2 PG (29.0-34.0); MCHC 33.7 G/DL (30.0-36.0); MCV 92.4 FL (86-99); MEAN PLAT.VOLUME 10.1 uM^3 (9.0-12.4); MONOCYTE (%) 6.6 % (3-12); MONOCYTE COUNT 0.4 K/uL (0-0.8); NEUTROPHIL (%) 60.5 % (45-76); NEUTROPHIL COUNT 3.3 K/uL (1.8-6.4); PLATELET COUNT 189 K/uL (156-360); RBC DIS.WIDTH-CV 13.4 % (11.8-14.6); RBC DIS.WIDTH-SD 45.5 % (39-53); RED BLOOD COUNT 3.82 M/uL (4.00-5.50); WHITE BLOOD COUNT 5.4 K/uL (4.1-10.2)
[2017-05-06 05:28] LABS: AMPHETAMINE NEGATIVE (500 ng/mL); BARBITURATES NEGATIVE (200 ng/mL); BENZODIAZEPINES NEGATIVE (150 ng/mL); COCAINE NEGATIVE (150 ng/mL); METHADONE NEGATIVE (200 ng/mL); METHAMPHETAMINE NEGATIVE (500 ng/mL); OPIATES (MORPHINE) NEGATIVE (100 ng/mL); PHENCYCLIDINE NEGATIVE (25 ng/mL); THC CANNABINOIDS NEGATIVE (50 ng/mL); TRICYCLIC ANTIDEPRESSANTS NEGATIVE (300 ng/mL)
[2017-05-06 05:29] LABS: INTERNAL CONTROLS VALID? YES; OXYCODONE NEGATIVE (100 ng/mL); PROPOXYPHENE NEGATIVE (300 ng/mL)
[2017-05-06] MEDS ORDERED: LISINOPRIL5 MG PO (12:40)
[2017-05-06] MEDS ORDERED: COGENTIN1 MG PO (12:40)
[2017-05-06] MEDS ORDERED: GLUCOPHAGE1000 MG PO (12:41)
[2017-05-06] MEDS ORDERED: OMEPRAZOLE20 MG PO ×2 (12:41→12:47)
[2017-05-06] MEDS ORDERED: FLOVENT DISKU250 MCG (12:42)
[2017-05-06] MEDS ORDERED: VENTOLIN HFA18 GM (12:43)
[2017-05-06] MEDS ORDERED: CHEWABLE-VITE1 EACH PO (12:43)
[2017-05-06] MEDS ORDERED: NEURONTIN300 MG PO (12:44)
[2017-05-06] MEDS ORDERED: CLOZAPINE200 MG PO (12:44)
[2017-05-06 15:53] VITALS: BP 114/57
[2017-05-07 07:39] VITALS: BP 122/60
[2017-05-07 15:23] VITALS: BP 112/57
[2017-05-08 07:50] VITALS: BP 133/71
[2017-05-08 15:36] VITALS: BP 120/60
[2017-05-09 07:55] VITALS: BP 119/79
[2017-05-09 16:04] VITALS: BP 128/70
[2017-05-10 07:46] VITALS: BP 117/63
[2017-05-10 15:46] VITALS: BP 101/55
[2017-05-11 08:12] VITALS: BP 116/61
[2017-05-11 15:31] VITALS: BP 109/53
[2017-05-12 07:25] VITALS: BP 121/68
[2017-05-12 15:45] VITALS: BP 114/58
[2017-05-13 08:15] VITALS: BP 121/60
[2017-05-13 15:44] VITALS: BP 124/58
[2017-05-13 19:31] LABS: CASTS NONE SEEN /LPF; EPITHELIAL CELLS RARE /HPF; MUCUS NONE SEEN /LPF
[2017-05-13 19:32] LABS: BACTERIA NONE SEEN /HPF; RED BLOOD CELLS NONE SEEN /HPF (0-5); WHITE BLOOD CELLS RARE /HPF (0-5)
[2017-05-14 08:19] VITALS: BP 137/62
[2017-05-14 15:31] VITALS: BP 128/57
[2017-05-15 07:53] VITALS: BP 124/58
[2017-05-15 16:23] VITALS: BP 119/63
[2017-05-16 08:50] LABS: ANION GAP 6 MEQ/L (2-14); CHLORIDE 103 MEQ/L (99-109); GFR ESTIMATE (CALCULATED) > 59 mL/min/; GLUCOSE 196 mg/dL (70-99); SAMPLE HEMOLYSIS CHECK 0; SAMPLE ICTERIC CHECK 0; SAMPLE LIPEMIA CHECK 0; SODIUM 141 MEQ/L (136-147); UREA NITROGEN (BUN) 14 mg/dL (9-23)
[2017-05-16 09:06] VITALS: BP 109/67
[2017-05-16 16:54] VITALS: BP 120/57
[2017-05-17 07:01] LABS: Estimated Average Glucose 171 mg/dL (70-123); HEMOGLOBIN A1c (GLYCOHEMOGLOB) 7.6 % HGB (Below 5.7)
[2017-05-17 07:53] VITALS: BP 91/51
[2017-05-17 11:35] VITALS: BP 115/64
[2017-05-17 15:33] VITALS: BP 121/72
[2017-05-18 07:36] VITALS: BP 116/56
[2017-05-18 15:39] VITALS: BP 122/58
[2017-05-18 18:51] LABS: POINT-OF-CARE METER ID UU14188576
[2017-05-19 07:47] VITALS: BP 119/61
[2017-05-19 15:41] VITALS: BP 109/59
[2017-05-20 07:43] VITALS: BP 131/82
[2017-05-20 15:29] VITALS: BP 103/55
[2017-05-21 07:47] VITALS: BP 121/73
[2017-05-21] MEDS ORDERED: FLUPHENAZINE HC10 MG PO (10:46)
[2017-05-21] MEDS ORDERED: COGENTIN0.5 MG PO (10:46)
[2017-05-21] MEDS ORDERED: RISPERDAL50 MG/2 ML IM (10:46)
== END 2017-05-21 13:35 | disposition home or self-care (01) | DRG 885 ==
LOC: EME 00:06 → EDOF 04:48 → 1WEST 04:48 → ENRESERV 07:35 → CANRESERV 07:35 → 1WEST 07:54
PROVIDERS: Emergency Medicine; Hospitalist; Psychiatry & Neurology Psychiatry
DX: F25.9 Schizoaffective disorder, unspecified (principal); R11.2 Nausea with vomiting, unspecified; E11.9 Type 2 diabetes mellitus without complications; Z91.14 Patient's other noncompliance with medication regimen; Z56.0 Unemployment, unspecified; F22 Delusional disorders; K21.9 Gastro-esophageal reflux disease without esophagitis; I10 Essential (primary) hypertension; J45.909 Unspecified asthma, uncomplicated
CPT/HCPCS: 80048; 81003; 82948; 83036; 83605; 85025; 90837; 94640; 94640 76; 97150 GO; 97166 GO; 99202; 99281; 99284; G0480; J2794; Q0175

== ENCOUNTER 2017-05-28 14:13 | Emergency (ER) | payer OTHER ==
[~2017-05-28] VITALS: Ht 172.7 cm; Wt 84.5 kg
[~2017-05-28 14:13] MED LIST changes: +CHEWABLE-VITE1 EACH PO; +CLOZAPINE200 MG PO; +COGENTIN0.5 MG PO; +FLOVENT DISKU250 MCG; +FLUPHENAZINE HC10 MG PO; +NEURONTIN300 MG PO; +RISPERDAL50 MG/2 ML IM; +VENTOLIN HFA18 GM
[2017-05-28 17:21] VITALS: BP 118/74
== END 2017-05-28 17:22 | disposition home or self-care (01) ==
LOC: EME 14:13
DX: F20.9 Schizophrenia, unspecified (principal); I10 Essential (primary) hypertension; J45.909 Unspecified asthma, uncomplicated; E11.9 Type 2 diabetes mellitus without complications; Z88.2 Allergy status to sulfonamides; Z86.73 Personal history of transient ischemic attack (TIA), and cerebral infarction without residual deficits; Z88.0 Allergy status to penicillin
CPT/HCPCS: 99281; 99284

== ENCOUNTER 2017-05-30 23:34 | Emergency (ER) | payer OTHER ==
[~2017-05-30] VITALS: Ht 177.8 cm; Wt 86.1 kg
[2017-05-31 04:00] VITALS: BP 135/69
== END 2017-05-31 04:01 | disposition home or self-care (01) ==
LOC: EME 23:34
DX: F20.9 Schizophrenia, unspecified (principal); S80.811A Abrasion, right lower leg, initial encounter; S80.812A Abrasion, left lower leg, initial encounter; X99.9XXA Assault by unspecified sharp object, initial encounter; I10 Essential (primary) hypertension; J45.909 Unspecified asthma, uncomplicated; E11.9 Type 2 diabetes mellitus without complications; Z79.84 Long term (current) use of oral hypoglycemic drugs
CPT/HCPCS: 90839; 99281; 99284

== ENCOUNTER 2017-06-07 15:58 | Emergency (ER) | payer OTHER ==
[~2017-06-07] VITALS: Ht 182.9 cm; Wt 83.8 kg
[2017-06-07 17:50] LABS: ADD MIUA? YES; BILIRUBIN SMALL; BLOOD NEGATIVE; COLOR AMBER ((YELLOW)); GLUCOSE (STRIP) NEGATIVE; KETONES 80; LEUKOCYTES NEGATIVE; NITRITE NEGATIVE; PROTEIN (STRIP) 100; SPECIFIC GRAVITY 1.032 (1.000-1.030)
[2017-06-07 17:58] LABS: AMPHETAMINE NEGATIVE (500 ng/mL); BARBITURATES NEGATIVE (200 ng/mL); BENZODIAZEPINES NEGATIVE (150 ng/mL); COCAINE NEGATIVE (150 ng/mL); INTERNAL CONTROLS VALID? YES; METHADONE NEGATIVE (200 ng/mL); METHAMPHETAMINE NEGATIVE (500 ng/mL); OPIATES (MORPHINE) NEGATIVE (100 ng/mL); OXYCODONE NEGATIVE (100 ng/mL); PHENCYCLIDINE NEGATIVE (25 ng/mL); PROPOXYPHENE NEGATIVE (300 ng/mL); THC CANNABINOIDS NEGATIVE (50 ng/mL); TRICYCLIC ANTIDEPRESSANTS NEGATIVE (300 ng/mL)
[2017-06-07 18:14] LABS: EPITHELIAL CELLS NONE SEEN /HPF; RED BLOOD CELLS 0-5 /HPF (0-5); WHITE BLOOD CELLS 0-5 /HPF (0-5)
[2017-06-07 18:15] LABS: BACTERIA 1+ /HPF; MUCUS 4+ /LPF; UCUL ADDED? NO
[2017-06-07 18:48] VITALS: BP 107/55
== END 2017-06-07 18:56 | disposition home or self-care (01) ==
LOC: EME 15:58
PROVIDERS: Emergency Medicine
DX: R10.9 Unspecified abdominal pain (principal); F20.9 Schizophrenia, unspecified; M54.9 Dorsalgia, unspecified; S00.12XA Contusion of left eyelid and periocular area, initial encounter; S50.11XA Contusion of right forearm, initial encounter; Y09 Assault by unspecified means; M21.962 Unspecified acquired deformity of left lower leg; J45.909 Unspecified asthma, uncomplicated; I10 Essential (primary) hypertension; E11.9 Type 2 diabetes mellitus without complications; Z79.84 Long term (current) use of oral hypoglycemic drugs; Z85.841 Personal history of malignant neoplasm of brain; Z86.73 Personal history of transient ischemic attack (TIA), and cerebral infarction without residual deficits
CPT/HCPCS: 73610; 81003; 99281; 99283

== ENCOUNTER 2017-06-09 01:55 | Emergency (ER) | payer OTHER ==
[~2017-06-09] VITALS: Ht 182.9 cm; Wt 86.5 kg
[2017-06-09 02:46] LABS: HEMATOCRIT 33.5 % (38.0-50.0); MCHC 33.1 G/DL (30.0-36.0); MCV 93.6 FL (86-99); MEAN PLAT.VOLUME 10.4 uM^3 (9.0-12.4); PLATELET COUNT 172 K/uL (156-360); RBC DIS.WIDTH-CV 12.5 % (11.8-14.6); RBC DIS.WIDTH-SD 43.2 % (39-53); RED BLOOD COUNT 3.58 M/uL (4.00-5.50); WHITE BLOOD COUNT 4.7 K/uL (4.1-10.2)
[2017-06-09 02:49] LABS: CHLORIDE 107 mEq/L (99-109); POTASSIUM 3.6 mEq/L (3.7-5.4); SODIUM 140 mEq/L (136-147)
[2017-06-09 02:51] LABS: GLUCOSE 191 mg/dL (70-99)
[2017-06-09 02:52] LABS: ANION GAP 8 MEQ/L (2-14)
[2017-06-09 02:54] LABS: SERUM ETHYL ALCOHOL < 10 mg/dL
[2017-06-09 02:55] LABS: GFR ESTIMATE (CALCULATED) > 59 mL/min/
[2017-06-09 02:56] LABS: UREA NITROGEN (BUN) 17 mg/dL (9-23)
[2017-06-09 04:50] VITALS: BP 122/74
== END 2017-06-09 04:51 | disposition home or self-care (01) ==
LOC: EME 01:55
PROVIDERS: Emergency Medicine
DX: F20.9 Schizophrenia, unspecified (principal); Z91.14 Patient's other noncompliance with medication regimen; R11.2 Nausea with vomiting, unspecified; E11.65 Type 2 diabetes mellitus with hyperglycemia; Z79.84 Long term (current) use of oral hypoglycemic drugs; I10 Essential (primary) hypertension; J45.909 Unspecified asthma, uncomplicated; Z85.841 Personal history of malignant neoplasm of brain; Z86.73 Personal history of transient ischemic attack (TIA), and cerebral infarction without residual deficits
CPT/HCPCS: 80048; 81003; 85027; 90839; 99281; 99283; G0480; J2794

== ENCOUNTER 2017-06-15 14:55 | Emergency (ER) | payer OTHER ==
[~2017-06-15] VITALS: Ht 182.9 cm; Wt 88.1 kg
[2017-06-15 18:07] LABS: ADD MIUA? NO; BILIRUBIN NEGATIVE; BLOOD NEGATIVE; COLOR COLORLESS ((YELLOW)); GLUCOSE (STRIP) NEGATIVE; KETONES NEGATIVE; LEUKOCYTES NEGATIVE; NITRITE NEGATIVE; PROTEIN (STRIP) NEGATIVE; SPECIFIC GRAVITY 1.006 (1.000-1.030); UROBILINOGEN 0.2 MG/DL (0.2-1.0)
[2017-06-15 18:24] LABS: AMPHETAMINE NEGATIVE (500 ng/mL); BARBITURATES NEGATIVE (200 ng/mL); BENZODIAZEPINES NEGATIVE (150 ng/mL); COCAINE NEGATIVE (150 ng/mL); INTERNAL CONTROLS VALID? YES; METHADONE NEGATIVE (200 ng/mL); METHAMPHETAMINE NEGATIVE (500 ng/mL); OPIATES (MORPHINE) NEGATIVE (100 ng/mL); OXYCODONE NEGATIVE (100 ng/mL); PHENCYCLIDINE NEGATIVE (25 ng/mL); PROPOXYPHENE NEGATIVE (300 ng/mL); THC CANNABINOIDS NEGATIVE (50 ng/mL); TRICYCLIC ANTIDEPRESSANTS NEGATIVE (300 ng/mL)
[2017-06-15 19:00] VITALS: BP 121/64
== END 2017-06-15 19:00 | disposition home or self-care (01) ==
LOC: EME 14:55
PROVIDERS: Emergency Medicine
DX: R30.0 Dysuria (principal); F20.9 Schizophrenia, unspecified; I10 Essential (primary) hypertension; E11.9 Type 2 diabetes mellitus without complications; J45.909 Unspecified asthma, uncomplicated; Z79.84 Long term (current) use of oral hypoglycemic drugs; Z86.73 Personal history of transient ischemic attack (TIA), and cerebral infarction without residual deficits; Z85.841 Personal history of malignant neoplasm of brain; Z88.0 Allergy status to penicillin; Z88.2 Allergy status to sulfonamides
CPT/HCPCS: 81003; 90839; 99281; 99283

== ENCOUNTER 2017-06-16 17:43 | Inpatient (IN) | payer OTHER ==
[~2017-06-16] VITALS: Ht 182.9 cm; Wt 87.9 kg
[2017-06-16 19:27] LABS: EOSINOPHIL (%) 4.6 % (0-5); EOSINOPHIL COUNT 0.2 K/uL (0-0.3); HEMATOCRIT 33.9 % (38.0-50.0); IMMATURE GRANULOCYTE (%) 0.2 % (0.0-0.7); INSTRUMENT ABS NEUTROPHIL CT 3.2 K/uL; LYMPHOCYTE COUNT 1.2 K/uL (1.0-2.8); MCV 93.9 FL (86-99); MEAN PLAT.VOLUME 10.1 uM^3 (9.0-12.4); MONOCYTE (%) 7.8 % (3-12); MONOCYTE COUNT 0.4 K/uL (0-0.8); NEUTROPHIL (%) 63.6 % (45-76); NEUTROPHIL COUNT 3.2 K/uL (1.8-6.4); PLATELET COUNT 179 K/uL (156-360); RBC DIS.WIDTH-CV 12.3 % (11.8-14.6); RBC DIS.WIDTH-SD 42.8 % (39-53); RED BLOOD COUNT 3.61 M/uL (4.00-5.50)
[2017-06-16 19:36] LABS: CHLORIDE 105 mEq/L (99-109); POTASSIUM 4.3 mEq/L (3.7-5.4)
[2017-06-16 19:37] LABS: SODIUM 140 mEq/L (136-147)
[2017-06-16 19:37] LABS: ADD MIUA? NO; BILIRUBIN NEGATIVE; BLOOD NEGATIVE; COLOR YELLOW ((YELLOW)); GLUCOSE (STRIP) NEGATIVE; KETONES NEGATIVE; LEUKOCYTES NEGATIVE; NITRITE NEGATIVE; PROTEIN (STRIP) NEGATIVE; SPECIFIC GRAVITY 1.014 (1.000-1.030); UROBILINOGEN 0.2 MG/DL (0.2-1.0)
[2017-06-16 19:38] LABS: GLUCOSE 193 mg/dL (70-99)
[2017-06-16 19:40] LABS: ANION GAP 9 MEQ/L (2-14)
[2017-06-16 19:41] LABS: SERUM ETHYL ALCOHOL < 10 mg/dL
[2017-06-16 19:42] LABS: GFR ESTIMATE (CALCULATED) > 59 mL/min/
[2017-06-16 19:43] LABS: UREA NITROGEN (BUN) 11 mg/dL (9-23)
[2017-06-16 19:46] LABS: AMPHETAMINE NEGATIVE (500 ng/mL); BARBITURATES NEGATIVE (200 ng/mL); BENZODIAZEPINES NEGATIVE (150 ng/mL); COCAINE NEGATIVE (150 ng/mL); INTERNAL CONTROLS VALID? YES; METHADONE NEGATIVE (200 ng/mL); METHAMPHETAMINE NEGATIVE (500 ng/mL); OPIATES (MORPHINE) NEGATIVE (100 ng/mL); OXYCODONE NEGATIVE (100 ng/mL); PHENCYCLIDINE NEGATIVE (25 ng/mL); PROPOXYPHENE NEGATIVE (300 ng/mL); THC CANNABINOIDS NEGATIVE (50 ng/mL); TRICYCLIC ANTIDEPRESSANTS NEGATIVE (300 ng/mL)
[2017-06-16 22:08] VITALS: BP 116/61
[2017-06-17 07:42] VITALS: BP 132/60
[2017-06-17 15:20] VITALS: BP 136/64
[2017-06-18 07:39] VITALS: BP 136/49
[2017-06-18 15:36] VITALS: BP 118/58
[2017-06-19 07:31] VITALS: BP 119/62
[2017-06-19 16:19] VITALS: BP 120/56
[2017-06-20 07:32] VITALS: BP 112/57
[2017-06-20 15:00] VITALS: BP 119/57
[2017-06-21 07:48] VITALS: BP 122/72
[2017-06-21 07:49] VITALS: BP 130/64
[2017-06-21 15:36] VITALS: BP 134/69
[2017-06-22 07:54] VITALS: BP 123/58
[2017-06-22 15:52] VITALS: BP 105/52
[2017-06-23 07:42] VITALS: BP 131/67
[2017-06-23 08:16] LABS: EOSINOPHIL (%) 3.8 % (0-5); EOSINOPHIL COUNT 0.2 K/uL (0-0.3); HEMATOCRIT 36.8 % (38.0-50.0); INSTRUMENT ABS NEUTROPHIL CT 2.4 K/uL; LYMPHOCYTE COUNT 1.1 K/uL (1.0-2.8); MCH 31.2 PG (29.0-34.0); MCHC 33.2 G/DL (30.0-36.0); MCV 94.1 FL (86-99); MEAN PLAT.VOLUME 10.4 uM^3 (9.0-12.4); MONOCYTE (%) 7.1 % (3-12); MONOCYTE COUNT 0.3 K/uL (0-0.8); NEUTROPHIL (%) 61.5 % (45-76); NEUTROPHIL COUNT 2.4 K/uL (1.8-6.4); PLATELET COUNT 182 K/uL (156-360); RBC DIS.WIDTH-CV 12.1 % (11.8-14.6); RBC DIS.WIDTH-SD 41.8 % (39-53); RED BLOOD COUNT 3.91 M/uL (4.00-5.50)
[2017-06-23 15:39] VITALS: BP 117/73
[2017-06-24 07:54] VITALS: BP 116/56
[2017-06-24 15:48] VITALS: BP 111/54
[2017-06-25 07:51] VITALS: BP 129/66
[2017-06-25 15:18] VITALS: BP 121/56
[2017-06-26 07:56] VITALS: BP 119/59
[2017-06-26 15:43] VITALS: BP 118/58
[2017-06-27 07:27] VITALS: BP 111/59
[2017-06-27 15:37] VITALS: BP 112/58
[2017-06-28 07:42] VITALS: BP 120/60
[2017-06-28 12:32] LABS: EOSINOPHIL (%) 3.1 % (0-5); EOSINOPHIL COUNT 0.1 K/uL (0-0.3); HEMATOCRIT 35.6 % (38.0-50.0); IMMATURE GRANULOCYTE (%) 0.2 % (0.0-0.7); LYMPHOCYTE COUNT 1.1 K/uL (1.0-2.8); MCH 32.2 PG (29.0-34.0); MCV 94.7 FL (86-99); MEAN PLAT.VOLUME 10.4 uM^3 (9.0-12.4); MONOCYTE (%) 6.2 % (3-12); MONOCYTE COUNT 0.3 K/uL (0-0.8); NEUTROPHIL (%) 66.8 % (45-76); PLATELET COUNT 195 K/uL (156-360); RBC DIS.WIDTH-CV 12.3 % (11.8-14.6); RBC DIS.WIDTH-SD 42.5 % (39-53); RED BLOOD COUNT 3.76 M/uL (4.00-5.50); WHITE BLOOD COUNT 4.6 K/uL (4.1-10.2)
[2017-06-28 15:11] VITALS: BP 133/58
[2017-06-29 07:49] VITALS: BP 129/76
[2017-06-29 15:33] VITALS: BP 116/59
[2017-06-29] MEDS ORDERED: RISPERDAL50 MG/2 ML IM (17:02)
[2017-06-29] MEDS ORDERED: KETOROLAC TROME10 MG PO (17:02)
[2017-06-29] MEDS ORDERED: CLOZAPINE100 MG PO (17:02)
[2017-06-29] MEDS ORDERED: GABAPENTIN600 MG PO (17:02)
== END 2017-06-30 08:05 | disposition home or self-care (01) | DRG 885 ==
LOC: EME 17:43 → 1WEST 19:26 → EDOF 19:26 → ENRESERV 20:42 → 1WEST 21:15
PROVIDERS: Emergency Medicine; Psychiatry & Neurology Psychiatry
DX: F20.0 Paranoid schizophrenia (principal); F32.9 Major depressive disorder, single episode, unspecified; R45.851 Suicidal ideations; E11.9 Type 2 diabetes mellitus without complications; Z59.0 Homelessness; Z91.19 Patient's noncompliance with other medical treatment and regimen; K21.9 Gastro-esophageal reflux disease without esophagitis; I10 Essential (primary) hypertension; G40.909 Epilepsy, unspecified, not intractable, without status epilepticus; Z86.73 Personal history of transient ischemic attack (TIA), and cerebral infarction without residual deficits; Z85.841 Personal history of malignant neoplasm of brain
CPT/HCPCS: 80048; 81003; 85025; 90839; 94640; 94640 76; 97150 GO; 97166 GO; 99202; 99281; 99285; G0480; J2680; J2794

== ENCOUNTER 2017-07-02 20:42 | Emergency (ER) | payer OTHER ==
[~2017-07-02] VITALS: Ht 180.3 cm; Wt 89.3 kg
[~2017-07-02 20:42] MED LIST changes: +GABAPENTIN600 MG PO; +KETOROLAC TROME10 MG PO
[2017-07-03 00:24] VITALS: BP 133/81
== END 2017-07-03 00:24 | disposition home or self-care (01) ==
LOC: EME 20:42
DX: Z00.8 Encounter for other general examination (principal); Z59.0 Homelessness; J45.909 Unspecified asthma, uncomplicated; E11.9 Type 2 diabetes mellitus without complications; Z79.84 Long term (current) use of oral hypoglycemic drugs; I10 Essential (primary) hypertension; K21.9 Gastro-esophageal reflux disease without esophagitis; Z86.73 Personal history of transient ischemic attack (TIA), and cerebral infarction without residual deficits; F41.9 Anxiety disorder, unspecified; F20.9 Schizophrenia, unspecified; Z88.0 Allergy status to penicillin; Z88.8 Allergy status to other drugs, medicaments and biological substances
CPT/HCPCS: 90832

== ENCOUNTER 2017-07-03 14:09 | Inpatient (IN) | payer OTHER ==
[~2017-07-03] VITALS: Ht 180.3 cm; Wt 88.0 kg
[2017-07-03 17:24] VITALS: BP 113/81
== END 2017-07-03 16:30 | disposition home or self-care (01) | DRG 552 ==
LOC: EME 14:09 → EDOF 14:45
DX: M54.2 Cervicalgia (principal); F20.9 Schizophrenia, unspecified; Z59.0 Homelessness; Y08.02XA Assault by strike by baseball bat, initial encounter
CPT/HCPCS: 72040; 99281; 99284

== ENCOUNTER 2017-07-10 12:57 | Emergency (ER) | payer OTHER ==
[~2017-07-10] VITALS: Ht 180.3 cm; Wt 86.5 kg
[2017-07-10 14:11] LABS: HEMATOCRIT 38.4 % (38.0-50.0); MCH 30.8 PG (29.0-34.0); MCHC 33.3 G/DL (30.0-36.0); MCV 92.5 FL (86-99); MEAN PLAT.VOLUME 10.2 uM^3 (9.0-12.4); PLATELET COUNT 169 K/uL (156-360); RBC DIS.WIDTH-CV 12.2 % (11.8-14.6); RBC DIS.WIDTH-SD 41.7 % (39-53); RED BLOOD COUNT 4.15 M/uL (4.00-5.50); WHITE BLOOD COUNT 4.8 K/uL (4.1-10.2)
[2017-07-10 14:26] LABS: CHLORIDE 103 mEq/L (99-109); SODIUM 139 mEq/L (136-147)
[2017-07-10 14:28] LABS: GLUCOSE 343 mg/dL (70-99)
[2017-07-10 14:29] LABS: ANION GAP 9 MEQ/L (2-14)
[2017-07-10 14:32] LABS: GFR ESTIMATE (CALCULATED) > 59 mL/min/
[2017-07-10 14:33] LABS: TROP-I INTERPRETATION NEGATIVE; TROPONIN-I < 0.01 ng/mL (0.0-0.30); UREA NITROGEN (BUN) 19 mg/dL (9-23)
[2017-07-10 16:59] VITALS: BP 124/72
== END 2017-07-10 17:00 | disposition home or self-care (01) ==
LOC: EME 12:57
DX: R00.2 Palpitations (principal); E11.65 Type 2 diabetes mellitus with hyperglycemia; R11.2 Nausea with vomiting, unspecified; R07.9 Chest pain, unspecified; R06.00 Dyspnea, unspecified; I10 Essential (primary) hypertension; J45.909 Unspecified asthma, uncomplicated; Z79.84 Long term (current) use of oral hypoglycemic drugs; Z85.841 Personal history of malignant neoplasm of brain; Z85.820 Personal history of malignant melanoma of skin; Z87.891 Personal history of nicotine dependence
CPT/HCPCS: 71020; 80048; 84484; 85027; 93005; 99281; 99284

== ENCOUNTER 2017-07-13 10:58 | Emergency (ER) | payer OTHER ==
[~2017-07-13] VITALS: Ht 180.3 cm; Wt 87.7 kg
[2017-07-13] MEDS ORDERED: ZOFRAN ODT4 MG PO (16:20)
[2017-07-13 17:11] VITALS: BP 129/58
== END 2017-07-13 17:12 | disposition home or self-care (01) ==
LOC: EME 10:58
DX: R11.0 Nausea (principal); F20.9 Schizophrenia, unspecified; K21.9 Gastro-esophageal reflux disease without esophagitis; E11.9 Type 2 diabetes mellitus without complications; J45.909 Unspecified asthma, uncomplicated; I10 Essential (primary) hypertension; F41.9 Anxiety disorder, unspecified; F32.9 Major depressive disorder, single episode, unspecified; F31.9 Bipolar disorder, unspecified; Z85.820 Personal history of malignant melanoma of skin; Z85.841 Personal history of malignant neoplasm of brain; Z86.73 Personal history of transient ischemic attack (TIA), and cerebral infarction without residual deficits; Z87.891 Personal history of nicotine dependence; Z88.0 Allergy status to penicillin; Z79.84 Long term (current) use of oral hypoglycemic drugs
CPT/HCPCS: 93005; 99281; 99284

== ENCOUNTER 2017-07-19 15:39 | Emergency (ER) | payer OTHER ==
[~2017-07-19] VITALS: Ht 180.3 cm; Wt 86.7 kg
[~2017-07-19 15:39] MED LIST changes: +ZOFRAN ODT4 MG PO
[2017-07-19] MEDS ORDERED: [UNRECOGNIZED DRUG - OTHER] TP (19:23)
[2017-07-19] MEDS ORDERED: ANT TP (19:23)
[2017-07-19 19:29] VITALS: BP 126/76
== END 2017-07-19 19:30 | disposition home or self-care (01) ==
LOC: EME 15:39
DX: S90.512A Abrasion, left ankle, initial encounter (principal); S00.81XA Abrasion of other part of head, initial encounter; X58.XXXA Exposure to other specified factors, initial encounter; Z86.14 Personal history of Methicillin resistant Staphylococcus aureus infection; Z87.891 Personal history of nicotine dependence
CPT/HCPCS: 99281; 99283

== ENCOUNTER 2017-07-20 01:51 | Emergency (ER) | payer OTHER ==
[~2017-07-20] VITALS: Ht 180.3 cm; Wt 86.5 kg
[~2017-07-20 01:51] MED LIST changes: +ANT TP; +[UNRECOGNIZED DRUG - OTHER] TP
[2017-07-20 02:34] LABS: HEMATOCRIT 36.8 % (38.0-50.0); MCH 31.6 PG (29.0-34.0); MCV 92.9 FL (86-99); MEAN PLAT.VOLUME 10.1 uM^3 (9.0-12.4); PLATELET COUNT 177 K/uL (156-360); RBC DIS.WIDTH-CV 12.5 % (11.8-14.6); RBC DIS.WIDTH-SD 42.8 % (39-53); RED BLOOD COUNT 3.96 M/uL (4.00-5.50); WHITE BLOOD COUNT 4.8 K/uL (4.1-10.2)
[2017-07-20 02:43] LABS: CHLORIDE 106 mEq/L (99-109); POTASSIUM 3.8 mEq/L (3.7-5.4); SODIUM 142 mEq/L (136-147)
[2017-07-20 02:45] LABS: GLUCOSE 182 mg/dL (70-99)
[2017-07-20 02:46] LABS: ANION GAP 10 MEQ/L (2-14)
[2017-07-20 02:49] LABS: GFR ESTIMATE (CALCULATED) > 59 mL/min/
[2017-07-20 02:50] LABS: UREA NITROGEN (BUN) 18 mg/dL (9-23)
[2017-07-20 02:57] LABS: TROP-I INTERPRETATION NEGATIVE; TROPONIN-I < 0.01 ng/mL (0.0-0.30)
[2017-07-20 04:49] LABS: TROP-I INTERPRETATION NEGATIVE; TROPONIN-I < 0.01 ng/mL (0.0-0.30)
[2017-07-20 05:20] VITALS: BP 128/70
== END 2017-07-20 05:20 | disposition home or self-care (01) ==
LOC: EME 01:51
PROVIDERS: Emergency Medicine
DX: R07.89 Other chest pain (principal); E11.9 Type 2 diabetes mellitus without complications; J45.909 Unspecified asthma, uncomplicated; I10 Essential (primary) hypertension; K21.9 Gastro-esophageal reflux disease without esophagitis; F20.9 Schizophrenia, unspecified; F41.9 Anxiety disorder, unspecified; F32.9 Major depressive disorder, single episode, unspecified; F31.9 Bipolar disorder, unspecified; Z85.841 Personal history of malignant neoplasm of brain; Z85.820 Personal history of malignant melanoma of skin; Z79.84 Long term (current) use of oral hypoglycemic drugs; Z86.73 Personal history of transient ischemic attack (TIA), and cerebral infarction without residual deficits; Z87.891 Personal history of nicotine dependence; Z88.0 Allergy status to penicillin
CPT/HCPCS: 71020; 80048; 83880; 84484; 85027; 93005; 99281; 99284

== ENCOUNTER 2017-07-21 15:56 | Emergency (ER) | payer OTHER ==
[~2017-07-21] VITALS: Ht 177.8 cm; Wt 86.9 kg
[2017-07-21 16:02] VITALS: BP 126/90
[2017-07-21 16:26] LABS: HEMATOCRIT 37.7 % (38.0-50.0); MCH 31.6 PG (29.0-34.0); MCHC 33.7 G/DL (30.0-36.0); MCV 93.8 FL (86-99); MEAN PLAT.VOLUME 10.5 uM^3 (9.0-12.4); PLATELET COUNT 196 K/uL (156-360); RBC DIS.WIDTH-CV 12.3 % (11.8-14.6); RBC DIS.WIDTH-SD 42.6 % (39-53); RED BLOOD COUNT 4.02 M/uL (4.00-5.50)
[2017-07-21 16:34] LABS: CHLORIDE 106 mEq/L (99-109); POTASSIUM 4.1 mEq/L (3.7-5.4); SODIUM 142 mEq/L (136-147)
[2017-07-21 16:36] LABS: GLUCOSE 167 mg/dL (70-99)
[2017-07-21 16:38] LABS: ANION GAP 10 MEQ/L (2-14)
[2017-07-21 16:39] LABS: SERUM ETHYL ALCOHOL < 10 mg/dL
[2017-07-21 16:40] LABS: GFR ESTIMATE (CALCULATED) > 59 mL/min/
[2017-07-21 16:41] LABS: UREA NITROGEN (BUN) 21 mg/dL (9-23)
== END 2017-07-21 20:35 | disposition left against medical advice (07) ==
LOC: EME 15:56
DX: R45.4 Irritability and anger (principal); R45.851 Suicidal ideations; Z53.21 Procedure and treatment not carried out due to patient leaving prior to being seen by health care provider
CPT/HCPCS: 80048; 85027; G0480

== ENCOUNTER 2017-07-26 03:58 | Emergency (ER) | payer OTHER ==
[~2017-07-26] VITALS: Ht 177.8 cm; Wt 89.2 kg
[2017-07-26 04:03] VITALS: BP 137/73
== END 2017-07-26 05:38 | disposition home or self-care (01) ==
LOC: EME 03:58
DX: S90.512A Abrasion, left ankle, initial encounter (principal); M25.572 Pain in left ankle and joints of left foot; G89.29 Other chronic pain; X58.XXXA Exposure to other specified factors, initial encounter; F20.9 Schizophrenia, unspecified; Z88.8 Allergy status to other drugs, medicaments and biological substances; Z88.0 Allergy status to penicillin
CPT/HCPCS: 73610; 99281; 99283

== ENCOUNTER 2017-08-19 10:47 | Emergency (ER) | payer OTHER ==
[~2017-08-19] VITALS: Ht 170.2 cm; Wt 93.9 kg
[2017-08-19 13:04] VITALS: BP 100/80
== END 2017-08-19 13:04 | disposition home or self-care (01) ==
LOC: EME 10:47
DX: M25.571 Pain in right ankle and joints of right foot (principal); M25.572 Pain in left ankle and joints of left foot; X50.1XXA Overexertion from prolonged static or awkward postures, initial encounter; Z91.81 History of falling; J45.909 Unspecified asthma, uncomplicated; E11.9 Type 2 diabetes mellitus without complications; Z79.84 Long term (current) use of oral hypoglycemic drugs
CPT/HCPCS: 73610; 99281; 99283

== ENCOUNTER 2017-08-23 22:29 | Emergency (ER) | payer OTHER ==
[~2017-08-23] VITALS: Ht 170.2 cm; Wt 94.2 kg
[2017-08-23 23:06] LABS: ADD MIUA? NO; BILIRUBIN NEGATIVE; BLOOD NEGATIVE; COLOR YELLOW ((YELLOW)); GLUCOSE (STRIP) NEGATIVE; KETONES 5; LEUKOCYTES NEGATIVE; NITRITE NEGATIVE; PROTEIN (STRIP) NEGATIVE; SPECIFIC GRAVITY 1.012 (1.000-1.030); UCUL ADDED? NO; UROBILINOGEN 0.2 MG/DL (0.2-1.0)
[2017-08-23 23:16] LABS: HEMATOCRIT 35.3 % (38.0-50.0); MCH 30.6 PG (29.0-34.0); MCHC 33.4 G/DL (30.0-36.0); MCV 91.5 FL (86-99); MEAN PLAT.VOLUME 9.8 uM^3 (9.0-12.4); PLATELET COUNT 202 K/uL (156-360); RBC DIS.WIDTH-CV 12.5 % (11.8-14.6); RBC DIS.WIDTH-SD 41.2 % (39-53); RED BLOOD COUNT 3.86 M/uL (4.00-5.50); WHITE BLOOD COUNT 6.5 K/uL (4.1-10.2)
[2017-08-23 23:26] LABS: AMPHETAMINE NEGATIVE (500 ng/mL); BARBITURATES NEGATIVE (200 ng/mL); BENZODIAZEPINES NEGATIVE (150 ng/mL); COCAINE NEGATIVE (150 ng/mL); INTERNAL CONTROLS VALID? YES; METHADONE NEGATIVE (200 ng/mL); METHAMPHETAMINE NEGATIVE (500 ng/mL); OPIATES (MORPHINE) NEGATIVE (100 ng/mL); OXYCODONE NEGATIVE (100 ng/mL); PHENCYCLIDINE NEGATIVE (25 ng/mL); PROPOXYPHENE NEGATIVE (300 ng/mL); THC CANNABINOIDS NEGATIVE (50 ng/mL); TRICYCLIC ANTIDEPRESSANTS NEGATIVE (300 ng/mL)
[2017-08-23 23:26] LABS: CHLORIDE 104 mEq/L (99-109); POTASSIUM 3.6 mEq/L (3.7-5.4); SODIUM 139 mEq/L (136-147)
[2017-08-23 23:29] LABS: ANION GAP 8 MEQ/L (2-14); GLUCOSE 207 mg/dL (70-99)
[2017-08-23 23:31] LABS: GFR ESTIMATE (CALCULATED) > 59 mL/min/
[2017-08-23 23:34] LABS: UREA NITROGEN (BUN) 13 mg/dL (9-23)
[2017-08-24 00:14] VITALS: BP 134/70
== END 2017-08-24 00:17 | disposition home or self-care (01) ==
LOC: EME → EDBD 22:29 → EME 08-24 00:17
PROVIDERS: Emergency Medicine
DX: R56.9 Unspecified convulsions (principal); S09.90XA Unspecified injury of head, initial encounter; W22.09XA Striking against other stationary object, initial encounter; Y92.830 Public park as the place of occurrence of the external cause; F20.9 Schizophrenia, unspecified; J45.909 Unspecified asthma, uncomplicated; E11.9 Type 2 diabetes mellitus without complications; Z79.84 Long term (current) use of oral hypoglycemic drugs; Z86.73 Personal history of transient ischemic attack (TIA), and cerebral infarction without residual deficits; F32.9 Major depressive disorder, single episode, unspecified; I10 Essential (primary) hypertension; K21.9 Gastro-esophageal reflux disease without esophagitis; F41.9 Anxiety disorder, unspecified; Z85.820 Personal history of malignant melanoma of skin; Z88.0 Allergy status to penicillin; Z88.2 Allergy status to sulfonamides
CPT/HCPCS: 70450; 80048; 80156; 80184; 80185; 81003; 85027; 93005; 99281; 99284; G0480

== ENCOUNTER 2017-08-24 03:12 | Emergency (ER) | payer OTHER ==
[~2017-08-24] VITALS: Ht 185.4 cm; Wt 93.6 kg
[2017-08-24 04:33] VITALS: BP 134/73
== END 2017-08-24 04:35 | disposition home or self-care (01) ==
LOC: EME → EDBD 03:12 → EME 04:35
DX: F43.20 Adjustment disorder, unspecified (principal); F20.9 Schizophrenia, unspecified; Z04.6 Encounter for general psychiatric examination, requested by authority; J45.909 Unspecified asthma, uncomplicated; E11.9 Type 2 diabetes mellitus without complications; F32.9 Major depressive disorder, single episode, unspecified; I10 Essential (primary) hypertension; Z79.84 Long term (current) use of oral hypoglycemic drugs; K21.9 Gastro-esophageal reflux disease without esophagitis; R56.9 Unspecified convulsions; Z86.73 Personal history of transient ischemic attack (TIA), and cerebral infarction without residual deficits; Z85.841 Personal history of malignant neoplasm of brain; Z85.820 Personal history of malignant melanoma of skin; Z88.2 Allergy status to sulfonamides; Z88.0 Allergy status to penicillin
CPT/HCPCS: 90837; 93005; 99281; 99285

== ENCOUNTER 2017-09-08 06:00 | Emergency (ER) | payer OTHER ==
[~2017-09-08] VITALS: Ht 154.9 cm; Wt 96.0 kg
[2017-09-08 06:09] VITALS: BP 123/68
== END 2017-09-08 10:08 | disposition home or self-care (01) ==
LOC: EME 06:00
DX: M79.671 Pain in right foot (principal); M79.672 Pain in left foot; F20.9 Schizophrenia, unspecified; Z88.2 Allergy status to sulfonamides; Z88.0 Allergy status to penicillin; Z88.8 Allergy status to other drugs, medicaments and biological substances
CPT/HCPCS: 73630; 99281; 99285

== ENCOUNTER 2017-09-25 09:47 | Emergency (ER) | payer OTHER ==
[~2017-09-25] VITALS: Ht 177.8 cm; Wt 91.0 kg
[2017-09-25 11:20] LABS: APPEARANCE SL.HAZY ((CLEAR)); BILIRUBIN NEGATIVE; BLOOD NEGATIVE; COLOR YELLOW ((YELLOW)); GLUCOSE (STRIP) >=500; KETONES NEGATIVE; LEUKOCYTES NEGATIVE; NITRITE NEGATIVE; PROTEIN (STRIP) NEGATIVE; UROBILINOGEN 0.2 MG/DL (0.2-1.0)
[2017-09-25 11:24] LABS: HEMOGLOBIN 12.8 G/DL (12.5-16.6); MCH 30.8 PG (29.0-34.0); MCHC 33.7 G/DL (30.0-36.0); MCV 91.6 FL (86-99); PLATELET COUNT 165 K/uL (156-360); RBC DIS.WIDTH-CV 12.7 % (11.8-14.6); RBC DIS.WIDTH-SD 42.4 % (39-53); RED BLOOD COUNT 4.15 M/uL (4.00-5.50); WHITE BLOOD COUNT 4.3 K/uL (4.1-10.2)
[2017-09-25 11:25] LABS: BACTERIA RARE /HPF; EPITHELIAL CELLS NONE SEEN /HPF; MUCUS NONE SEEN /LPF; RED BLOOD CELLS 0-5 /HPF (0-5); WHITE BLOOD CELLS 0-5 /HPF (0-5)
[2017-09-25 11:32] LABS: ALBUMIN 3.5 g/dL (3.2-4.8); CHLORIDE 102 mEq/L (99-109); POTASSIUM 4.8 mEq/L (3.7-5.4); SODIUM 136 mEq/L (136-147)
[2017-09-25 11:35] LABS: GLUCOSE 347 mg/dL (70-99); TOTAL PROTEIN 6.1 g/dL (6.4-8.3)
[2017-09-25 11:36] LABS: TOTAL BILIRUBIN 0.5 mg/dL (0.0-1.0)
[2017-09-25 11:36] LABS: AMPHETAMINE NEGATIVE (500 ng/mL); BARBITURATES NEGATIVE (200 ng/mL); BENZODIAZEPINES NEGATIVE (150 ng/mL); BUPRENORPHINE NEGATIVE (10 ng/mL); COCAINE NEGATIVE (150 ng/mL); METHADONE NEGATIVE (200 ng/mL); METHAMPHETAMINE NEGATIVE (500 ng/mL); OPIATES (MORPHINE) NEGATIVE (100 ng/mL); OXYCODONE NEGATIVE (100 ng/mL); PHENCYCLIDINE NEGATIVE (25 ng/mL); PROPOXYPHENE NEGATIVE (300 ng/mL); THC CANNABINOIDS NEGATIVE (50 ng/mL); TRICYCLIC ANTIDEPRESSANTS NEGATIVE (300 ng/mL)
[2017-09-25 11:38] LABS: ALKALINE PHOSPHATASE 98 IU/L (3-129); CREATININE 0.8 mg/dL (0.6-1.3); GFR ESTIMATE (CALCULATED) > 59 mL/min/ (58.99-99999); SERUM ETHYL ALCOHOL < 10 mg/dL
[2017-09-25 11:39] LABS: UREA NITROGEN (BUN) 12 mg/dL (9-23)
[2017-09-25 11:40] LABS: AST (GOT) 14 IU/L (2-34)
[2017-09-25 11:41] LABS: ALT (GPT) 17 IU/L (3-49)
[2017-09-25 15:15] VITALS: BP 130/71
== END 2017-09-25 15:17 | disposition home or self-care (01) ==
LOC: EME 09:47
PROVIDERS: Emergency Medicine
DX: F20.9 Schizophrenia, unspecified (principal); I10 Essential (primary) hypertension; K21.9 Gastro-esophageal reflux disease without esophagitis; J45.909 Unspecified asthma, uncomplicated; E11.9 Type 2 diabetes mellitus without complications; F41.9 Anxiety disorder, unspecified; F32.9 Major depressive disorder, single episode, unspecified; Z86.73 Personal history of transient ischemic attack (TIA), and cerebral infarction without residual deficits; Z85.820 Personal history of malignant melanoma of skin; Z85.841 Personal history of malignant neoplasm of brain; Z88.2 Allergy status to sulfonamides; Z88.0 Allergy status to penicillin; Z88.1 Allergy status to other antibiotic agents; Z59.0 Homelessness
CPT/HCPCS: 80053; 81003; 85027; 90839; 99281; 99285; G0480

== ENCOUNTER 2017-09-29 11:07 | Emergency (ER) | payer OTHER ==
[~2017-09-29] VITALS: Ht 177.8 cm; Wt 90.9 kg
[2017-09-29 13:14] LABS: HEMOGLOBIN 13.7 G/DL (12.5-16.6); MCH 31.4 PG (29.0-34.0); MCHC 34.3 G/DL (30.0-36.0); MCV 91.5 FL (86-99); PLATELET COUNT 166 K/uL (156-360); RBC DIS.WIDTH-CV 12.9 % (11.8-14.6); RBC DIS.WIDTH-SD 43.3 % (39-53); RED BLOOD COUNT 4.37 M/uL (4.00-5.50); WHITE BLOOD COUNT 5.9 K/uL (4.1-10.2)
[2017-09-29 13:24] LABS: ALBUMIN 3.7 g/dL (3.2-4.8); CHLORIDE 104 mEq/L (99-109); POTASSIUM 4.4 mEq/L (3.7-5.4); SODIUM 140 mEq/L (136-147)
[2017-09-29 13:26] LABS: GLUCOSE 260 mg/dL (70-99); TOTAL PROTEIN 6.5 g/dL (6.4-8.3)
[2017-09-29 13:28] LABS: TOTAL BILIRUBIN 0.3 mg/dL (0.0-1.0)
[2017-09-29 13:29] LABS: SERUM ETHYL ALCOHOL < 10 mg/dL
[2017-09-29 13:30] LABS: ALKALINE PHOSPHATASE 101 IU/L (3-129); CREATININE 1.1 mg/dL (0.6-1.3); GFR ESTIMATE (CALCULATED) > 59 mL/min/ (58.99-99999)
[2017-09-29 13:31] LABS: AST (GOT) 16 IU/L (2-34); UREA NITROGEN (BUN) 22 mg/dL (9-23)
[2017-09-29 13:33] LABS: ALT (GPT) 17 IU/L (3-49)
[2017-09-29 13:37] LABS: TROP-I INTERPRETATION NEGATIVE; TROPONIN-I < 0.01 ng/mL (0.0-0.30)
[2017-09-29 14:11] LABS: AMPHETAMINE NEGATIVE (500 ng/mL); BARBITURATES NEGATIVE (200 ng/mL); BENZODIAZEPINES NEGATIVE (150 ng/mL); BUPRENORPHINE NEGATIVE (10 ng/mL); COCAINE NEGATIVE (150 ng/mL); METHADONE NEGATIVE (200 ng/mL); METHAMPHETAMINE NEGATIVE (500 ng/mL); OPIATES (MORPHINE) NEGATIVE (100 ng/mL); OXYCODONE NEGATIVE (100 ng/mL); PHENCYCLIDINE NEGATIVE (25 ng/mL); PROPOXYPHENE NEGATIVE (300 ng/mL); THC CANNABINOIDS NEGATIVE (50 ng/mL); TRICYCLIC ANTIDEPRESSANTS NEGATIVE (300 ng/mL)
[2017-09-29 17:57] VITALS: BP 117/68
== END 2017-09-29 18:01 | disposition left against medical advice (07) ==
LOC: EME 11:07
PROVIDERS: Emergency Medicine
DX: F31.9 Bipolar disorder, unspecified (principal); F20.9 Schizophrenia, unspecified; F22 Delusional disorders; Z85.820 Personal history of malignant melanoma of skin; Z85.841 Personal history of malignant neoplasm of brain; Z86.73 Personal history of transient ischemic attack (TIA), and cerebral infarction without residual deficits; K44.9 Diaphragmatic hernia without obstruction or gangrene; K21.9 Gastro-esophageal reflux disease without esophagitis; J45.909 Unspecified asthma, uncomplicated; I10 Essential (primary) hypertension; F41.9 Anxiety disorder, unspecified; E11.9 Type 2 diabetes mellitus without complications; Z88.2 Allergy status to sulfonamides; Z88.0 Allergy status to penicillin
CPT/HCPCS: 80053; 84484; 85027; 93005; 93931; 93971; 99281; 99284; G0480

== ENCOUNTER 2017-10-04 13:25 | Emergency (ER) | payer OTHER ==
[~2017-10-04] VITALS: Ht 177.8 cm; Wt 91.0 kg
[2017-10-04] MEDS ORDERED: VRAYLAR3 MG PO (15:21)
[2017-10-04 18:00] VITALS: BP 127/60
== END 2017-10-04 18:01 | disposition home or self-care (01) ==
LOC: EME 13:25
DX: S20.219A Contusion of unspecified front wall of thorax, initial encounter (principal); S60.511A Abrasion of right hand, initial encounter; S60.512A Abrasion of left hand, initial encounter; R26.89 Other abnormalities of gait and mobility; Z85.841 Personal history of malignant neoplasm of brain; Z86.73 Personal history of transient ischemic attack (TIA), and cerebral infarction without residual deficits; K21.9 Gastro-esophageal reflux disease without esophagitis; E11.9 Type 2 diabetes mellitus without complications; I10 Essential (primary) hypertension; Z79.84 Long term (current) use of oral hypoglycemic drugs; Z88.0 Allergy status to penicillin; Z88.2 Allergy status to sulfonamides; Z88.1 Allergy status to other antibiotic agents; Z91.012 Allergy to eggs; Z91.011 Allergy to milk products; Z91.018 Allergy to other foods; V09.9XXA Pedestrian injured in unspecified transport accident, initial encounter
CPT/HCPCS: 71046; 99281; 99284

== ENCOUNTER 2017-10-06 02:54 | Emergency (ER) | payer OTHER ==
[~2017-10-06] VITALS: Ht 172.7 cm; Wt 89.6 kg
[~2017-10-06 02:54] MED LIST changes: +VRAYLAR3 MG PO
[2017-10-06 03:42] VITALS: BP 121/74
[2017-10-06] MEDS ORDERED: TYLENOL WITH C1 EACH PO (10:03)
== END 2017-10-06 10:47 | disposition home or self-care (01) ==
LOC: EME 02:54
DX: S92.351A Displaced fracture of fifth metatarsal bone, right foot, initial encounter for closed fracture (principal); F17.200 Nicotine dependence, unspecified, uncomplicated; W19.XXXA Unspecified fall, initial encounter; Z88.0 Allergy status to penicillin; Z88.2 Allergy status to sulfonamides; Z88.8 Allergy status to other drugs, medicaments and biological substances
CPT/HCPCS: 73610; 73630; 99281; 99284

== ENCOUNTER 2017-10-07 21:55 | Inpatient (IN) | payer OTHER ==
[~2017-10-07] VITALS: Ht 177.8 cm; Wt 90.0 kg
[~2017-10-07 21:55] MED LIST changes: +TYLENOL WITH C1 EACH PO
[2017-10-07 22:51] LABS: HEMATOCRIT 37.1 % (38.0-50.0); HEMOGLOBIN 12.7 G/DL (12.5-16.6); MCHC 34.2 G/DL (30.0-36.0); MCV 90.5 FL (86-99); PLATELET COUNT 200 K/uL (156-360); RBC DIS.WIDTH-CV 12.6 % (11.8-14.6); RBC DIS.WIDTH-SD 41.1 % (39-53); WHITE BLOOD COUNT 5.4 K/uL (4.1-10.2)
[2017-10-07 22:55] LABS: AMPHETAMINE NEGATIVE (500 ng/mL); BARBITURATES NEGATIVE (200 ng/mL); BENZODIAZEPINES NEGATIVE (150 ng/mL); BUPRENORPHINE NEGATIVE (10 ng/mL); COCAINE NEGATIVE (150 ng/mL); METHADONE NEGATIVE (200 ng/mL); METHAMPHETAMINE NEGATIVE (500 ng/mL); OPIATES (MORPHINE) PRESUMPTIVE POSITIVE (100 ng/mL); OXYCODONE NEGATIVE (100 ng/mL); PHENCYCLIDINE NEGATIVE (25 ng/mL); PROPOXYPHENE NEGATIVE (300 ng/mL); THC CANNABINOIDS NEGATIVE (50 ng/mL); TRICYCLIC ANTIDEPRESSANTS NEGATIVE (300 ng/mL)
[2017-10-07 23:01] LABS: CHLORIDE 102 mEq/L (99-109); SODIUM 137 mEq/L (136-147)
[2017-10-07 23:06] LABS: SERUM ETHYL ALCOHOL < 10 mg/dL
[2017-10-07 23:07] LABS: CREATININE 0.9 mg/dL (0.6-1.3); GFR ESTIMATE (CALCULATED) > 59 mL/min/ (58.99-99999); UREA NITROGEN (BUN) 14 mg/dL (9-23)
[2017-10-07 23:08] LABS: GLUCOSE 481 mg/dL (70-99)
[2017-10-08 01:43] VITALS: BP 128/67
[2017-10-08 07:39] VITALS: BP 129/69
[2017-10-08 15:18] VITALS: BP 116/57
[2017-10-09 09:26] VITALS: BP 126/59
[2017-10-09 15:25] VITALS: BP 111/51
[2017-10-10 08:17] VITALS: BP 96/60
[2017-10-10 15:43] VITALS: BP 127/60
[2017-10-11 07:55] VITALS: BP 119/61
[2017-10-11] MEDS ORDERED: AMARYL1 MG PO (09:56)
[2017-10-11] MEDS ORDERED: VRAYLAR3 MG PO (10:45)
== END 2017-10-11 12:49 | disposition home or self-care (01) | DRG 885 ==
LOC: EME 21:55 → 1WEST 23:22 → EDOF 23:22 → ENRESERV 10-08 01:32 → 1WEST 10-08 01:33
PROVIDERS: Emergency Medicine Emergency Medical Services; Psychiatry & Neurology Psychiatry
DX: F20.9 Schizophrenia, unspecified (principal); R45.851 Suicidal ideations; F32.9 Major depressive disorder, single episode, unspecified; F41.9 Anxiety disorder, unspecified; E11.9 Type 2 diabetes mellitus without complications; I10 Essential (primary) hypertension; J45.909 Unspecified asthma, uncomplicated; F17.200 Nicotine dependence, unspecified, uncomplicated; K21.9 Gastro-esophageal reflux disease without esophagitis; K44.9 Diaphragmatic hernia without obstruction or gangrene; M19.90 Unspecified osteoarthritis, unspecified site; Z59.0 Homelessness; Z86.73 Personal history of transient ischemic attack (TIA), and cerebral infarction without residual deficits; Z85.820 Personal history of malignant melanoma of skin; Z88.0 Allergy status to penicillin; Z88.2 Allergy status to sulfonamides; Z91.011 Allergy to milk products; Z91.012 Allergy to eggs; S92.353D Displaced fracture of fifth metatarsal bone, unspecified foot, subsequent encounter for fracture with routine healing
CPT/HCPCS: 80048; 82948; 84999; 85027; 90839; 94640; 94640 76; 97150 GO; 97166 GO; 99202; 99281; 99285; G0480

== ENCOUNTER 2017-10-12 05:18 | Emergency (ER) | payer OTHER ==
[~2017-10-12] VITALS: Ht 177.8 cm; Wt 90.8 kg
[~2017-10-12 05:18] MED LIST changes: +AMARYL1 MG PO
[2017-10-12 09:08] VITALS: BP 135/76
[2017-10-12 13:57] LABS: TREPONEMA ANTIBODY NEGATIVE (NEGATIVE)
== END 2017-10-12 09:09 | disposition home or self-care (01) ==
LOC: EME 05:18
PROVIDERS: Emergency Medicine
DX: T76.21XA Adult sexual abuse, suspected, initial encounter (principal); F31.9 Bipolar disorder, unspecified; F17.200 Nicotine dependence, unspecified, uncomplicated; Z59.0 Homelessness; Z88.2 Allergy status to sulfonamides; Z88.0 Allergy status to penicillin; Z85.820 Personal history of malignant melanoma of skin; Z86.73 Personal history of transient ischemic attack (TIA), and cerebral infarction without residual deficits; K44.9 Diaphragmatic hernia without obstruction or gangrene; K21.9 Gastro-esophageal reflux disease without esophagitis; J45.909 Unspecified asthma, uncomplicated; I10 Essential (primary) hypertension; F41.9 Anxiety disorder, unspecified; F20.9 Schizophrenia, unspecified; E11.9 Type 2 diabetes mellitus without complications
CPT/HCPCS: 86780; 99281; 99284

== ENCOUNTER 2017-10-14 04:40 | Emergency (ER) | payer OTHER ==
[~2017-10-14] VITALS: Ht 177.8 cm; Wt 90.8 kg
[2017-10-14 07:48] VITALS: BP 122/64
== END 2017-10-14 08:01 | disposition home or self-care (01) ==
LOC: EME 04:40
DX: J06.9 Acute upper respiratory infection, unspecified (principal); I10 Essential (primary) hypertension; E11.9 Type 2 diabetes mellitus without complications; J45.909 Unspecified asthma, uncomplicated; F20.9 Schizophrenia, unspecified; F31.9 Bipolar disorder, unspecified; F41.9 Anxiety disorder, unspecified; F32.9 Major depressive disorder, single episode, unspecified; R56.9 Unspecified convulsions; Z79.84 Long term (current) use of oral hypoglycemic drugs; Z88.2 Allergy status to sulfonamides; Z88.0 Allergy status to penicillin; Z88.8 Allergy status to other drugs, medicaments and biological substances
CPT/HCPCS: 99281; 99284

== ENCOUNTER 2017-10-14 23:37 | Inpatient (IN) | payer OTHER ==
[~2017-10-14] VITALS: Ht 177.8 cm; Wt 91.2 kg
[2017-10-15 00:51] LABS: HEMATOCRIT 35.4 % (38.0-50.0); HEMOGLOBIN 12.1 G/DL (12.5-16.6); MCH 30.9 PG (29.0-34.0); MCHC 34.2 G/DL (30.0-36.0); MCV 90.3 FL (86-99); PLATELET COUNT 210 K/uL (156-360); RBC DIS.WIDTH-CV 12.8 % (11.8-14.6); RBC DIS.WIDTH-SD 41.7 % (39-53); RED BLOOD COUNT 3.92 M/uL (4.00-5.50); WHITE BLOOD COUNT 4.8 K/uL (4.1-10.2)
[2017-10-15 01:06] LABS: APPEARANCE CLEAR ((CLEAR)); BILIRUBIN NEGATIVE; BLOOD NEGATIVE; COLOR AMBER ((YELLOW)); GLUCOSE (STRIP) >=500; KETONES 20; LEUKOCYTES NEGATIVE; NITRITE NEGATIVE; PROTEIN (STRIP) 30; SPECIFIC GRAVITY 1.033 (1.000-1.030); UCUL ADDED? NO
[2017-10-15 01:10] LABS: CHLORIDE 105 mEq/L (99-109); POTASSIUM 3.8 mEq/L (3.7-5.4); SODIUM 137 mEq/L (136-147)
[2017-10-15 01:12] LABS: GLUCOSE 248 mg/dL (70-99)
[2017-10-15 01:15] LABS: SERUM ETHYL ALCOHOL < 10 mg/dL
[2017-10-15 01:16] LABS: CREATININE 0.8 mg/dL (0.6-1.3); GFR ESTIMATE (CALCULATED) > 59 mL/min/ (58.99-99999)
[2017-10-15 01:17] LABS: UREA NITROGEN (BUN) 19 mg/dL (9-23)
[2017-10-15 01:17] LABS: AMPHETAMINE NEGATIVE (500 ng/mL); BARBITURATES NEGATIVE (200 ng/mL); BENZODIAZEPINES NEGATIVE (150 ng/mL); BUPRENORPHINE NEGATIVE (10 ng/mL); COCAINE NEGATIVE (150 ng/mL); METHADONE NEGATIVE (200 ng/mL); METHAMPHETAMINE NEGATIVE (500 ng/mL); OPIATES (MORPHINE) PRESUMPTIVE POSITIVE (100 ng/mL); OXYCODONE NEGATIVE (100 ng/mL); PHENCYCLIDINE NEGATIVE (25 ng/mL); PROPOXYPHENE NEGATIVE (300 ng/mL); THC CANNABINOIDS NEGATIVE (50 ng/mL); TRICYCLIC ANTIDEPRESSANTS NEGATIVE (300 ng/mL)
[2017-10-15 13:44] VITALS: BP 112/57
[2017-10-15 15:38] VITALS: BP 112/58
[2017-10-16 08:02] VITALS: BP 112/53
[2017-10-16 15:55] VITALS: BP 118/56
[2017-10-17 07:40] VITALS: BP 110/54
[2017-10-17 16:08] VITALS: BP 131/58
[2017-10-18 07:50] VITALS: BP 152/60
[2017-10-18 15:58] VITALS: BP 125/58
[2017-10-19 07:17] VITALS: BP 113/68
[2017-10-19 11:01] VITALS: BP 108/53
[2017-10-19 16:05] VITALS: BP 138/63
[2017-10-20 07:22] VITALS: BP 123/62
[2017-10-20 15:42] VITALS: BP 119/57
[2017-10-21 07:48] VITALS: BP 114/66
[2017-10-21 15:56] VITALS: BP 129/56
[2017-10-22 07:53] VITALS: BP 118/61
[2017-10-22 15:16] VITALS: BP 131/56
[2017-10-23 07:48] VITALS: BP 133/69
[2017-10-23 15:23] VITALS: BP 115/55
[2017-10-24 08:16] VITALS: BP 106/61
[2017-10-24 15:10] VITALS: BP 120/54
[2017-10-25 07:44] VITALS: BP 127/85
[2017-10-25 15:41] VITALS: BP 127/79
[2017-10-26 07:47] VITALS: BP 134/84
[2017-10-26 15:26] VITALS: BP 121/68
[2017-10-27 08:34] VITALS: BP 119/56
[2017-10-27 15:34] VITALS: BP 165/77
[2017-10-27 20:38] VITALS: BP 134/61
[2017-10-28 08:27] VITALS: BP 142/78
[2017-10-28 17:00] VITALS: BP 124/59
[2017-10-29 07:43] VITALS: BP 121/59
[2017-10-29 15:48] VITALS: BP 106/56
[2017-10-30 07:36] VITALS: BP 137/75
[2017-10-30 15:42] VITALS: BP 138/65
[2017-10-31 07:36] VITALS: BP 109/68
[2017-10-31 16:03] VITALS: BP 123/60
[2017-11-01 07:34] VITALS: BP 115/67
[2017-11-01 16:27] VITALS: BP 124/63
[2017-11-02 07:48] VITALS: BP 97/67
[2017-11-02 11:30] VITALS: BP 116/55
[2017-11-02 15:39] VITALS: BP 108/52
[2017-11-03 07:25] VITALS: BP 139/82
[2017-11-03 15:38] VITALS: BP 130/60
[2017-11-04 07:53] VITALS: BP 123/81
[2017-11-04] MEDS ORDERED: DIVALPROEX SOD500 MG PO (08:49)
[2017-11-04] MEDS ORDERED: ZYPREXA15 MG PO (08:49)
[2017-11-04] MEDS ORDERED: HYDROXYZINE PAM25 MG PO (08:49)
== END 2017-11-04 09:31 | disposition home or self-care (01) | DRG 885 ==
LOC: EME 23:37 → 1WEST 10-15 11:28 → EDOF 10-15 11:28 → ENRESERV 10-15 13:00 → 1WEST 10-15 13:31
PROVIDERS: Emergency Medicine; Psychiatry & Neurology Psychiatry
DX: F20.9 Schizophrenia, unspecified (principal); F22 Delusional disorders; R45.851 Suicidal ideations; E11.9 Type 2 diabetes mellitus without complications; I10 Essential (primary) hypertension; K21.9 Gastro-esophageal reflux disease without esophagitis; J45.909 Unspecified asthma, uncomplicated; F32.9 Major depressive disorder, single episode, unspecified; M19.90 Unspecified osteoarthritis, unspecified site; Z59.0 Homelessness; Z86.73 Personal history of transient ischemic attack (TIA), and cerebral infarction without residual deficits; Z79.84 Long term (current) use of oral hypoglycemic drugs
CPT/HCPCS: 70220; 80048; 81003; 82948; 84999; 85027; 90839; 94640; 94640 76; 97150 GO; 97166 GO; 99202; 99281; 99285; G0480; Q0175; Q0177

== ENCOUNTER 2017-11-12 17:57 | Emergency (ER) | payer OTHER ==
[~2017-11-12] VITALS: Ht 175.3 cm; Wt 90.6 kg
[~2017-11-12 17:57] MED LIST changes: +HYDROXYZINE PAM25 MG PO; +ZYPREXA15 MG PO
[2017-11-12 22:15] LABS: BASOPHIL (%) 0.4 % (0-1); EOSINOPHIL (%) 3.3 % (0-5); EOSINOPHIL COUNT 0.2 K/uL (0-0.3); HEMATOCRIT 36.9 % (38.0-50.0); HEMOGLOBIN 12.4 G/DL (12.5-16.6); IMMATURE GRANULOCYTE (%) 0.2 % (0.0-0.7); LYMPHOCYTE (%) 33.1 % (15-42); LYMPHOCYTE COUNT 1.7 K/uL (1.0-2.8); MCH 30.5 PG (29.0-34.0); MCHC 33.6 G/DL (30.0-36.0); MCV 90.7 FL (86-99); MONOCYTE (%) 8.8 % (3-12); MONOCYTE COUNT 0.5 K/uL (0-0.8); NEUTROPHIL (%) 54.2 % (45-76); NEUTROPHIL COUNT 2.8 K/uL (1.8-6.4); PLATELET COUNT 187 K/uL (156-360); RBC DIS.WIDTH-CV 13.3 % (11.8-14.6); RBC DIS.WIDTH-SD 44.5 % (39-53); RED BLOOD COUNT 4.07 M/uL (4.00-5.50); WHITE BLOOD COUNT 5.1 K/uL (4.1-10.2)
[2017-11-12 22:28] LABS: CHLORIDE 104 mEq/L (99-109); POTASSIUM 3.8 mEq/L (3.7-5.4); SODIUM 141 mEq/L (136-147)
[2017-11-12 22:30] LABS: GLUCOSE 192 mg/dL (70-99)
[2017-11-12 22:33] LABS: SERUM ETHYL ALCOHOL < 10 mg/dL
[2017-11-12 22:34] LABS: CREATININE 0.7 mg/dL (0.6-1.3); GFR ESTIMATE (CALCULATED) > 59 mL/min/ (58.99-99999)
[2017-11-12 22:35] LABS: UREA NITROGEN (BUN) 15 mg/dL (9-23)
[2017-11-12 22:52] LABS: APPEARANCE CLEAR ((CLEAR)); BILIRUBIN NEGATIVE; BLOOD NEGATIVE; COLOR YELLOW ((YELLOW)); GLUCOSE (STRIP) >=500; KETONES 5; LEUKOCYTES NEGATIVE; NITRITE NEGATIVE; PROTEIN (STRIP) 30; SPECIFIC GRAVITY 1.029 (1.000-1.030); UCUL ADDED? NO
[2017-11-12 22:59] LABS: AMPHETAMINE NEGATIVE (500 ng/mL); BARBITURATES NEGATIVE (200 ng/mL); BENZODIAZEPINES NEGATIVE (150 ng/mL); BUPRENORPHINE NEGATIVE (10 ng/mL); COCAINE NEGATIVE (150 ng/mL); METHADONE NEGATIVE (200 ng/mL); METHAMPHETAMINE NEGATIVE (500 ng/mL); OPIATES (MORPHINE) NEGATIVE (100 ng/mL); OXYCODONE NEGATIVE (100 ng/mL); PHENCYCLIDINE NEGATIVE (25 ng/mL); PROPOXYPHENE NEGATIVE (300 ng/mL); THC CANNABINOIDS NEGATIVE (50 ng/mL); TRICYCLIC ANTIDEPRESSANTS NEGATIVE (300 ng/mL)
[2017-11-12] MEDS ORDERED: ANTIFUNGAL113 GM TP (23:09)
[2017-11-12] MEDS ORDERED: DOXYCYCLINE HY100 MG PO (23:10)
[2017-11-13 00:04] VITALS: BP 129/65
== END 2017-11-13 00:05 | disposition home or self-care (01) ==
LOC: EME 17:57
PROVIDERS: Physician Assistant
DX: R21 Rash and other nonspecific skin eruption (principal); H10.9 Unspecified conjunctivitis; I10 Essential (primary) hypertension; E11.9 Type 2 diabetes mellitus without complications; K21.9 Gastro-esophageal reflux disease without esophagitis; J45.909 Unspecified asthma, uncomplicated; F41.9 Anxiety disorder, unspecified; F32.9 Major depressive disorder, single episode, unspecified; F20.9 Schizophrenia, unspecified; Z79.84 Long term (current) use of oral hypoglycemic drugs; Z85.820 Personal history of malignant melanoma of skin; Z85.841 Personal history of malignant neoplasm of brain; Z86.73 Personal history of transient ischemic attack (TIA), and cerebral infarction without residual deficits; Z88.0 Allergy status to penicillin; Z88.2 Allergy status to sulfonamides; Z88.8 Allergy status to other drugs, medicaments and biological substances
CPT/HCPCS: 80048; 81003; 85025; 87070; 87077; 87147; 87186; 99281; 99283; G0480; J0696

== ENCOUNTER 2017-11-17 09:26 | Emergency (ER) | payer OTHER ==
[~2017-11-17] VITALS: Ht 177.8 cm; Wt 81.8 kg
[~2017-11-17 09:26] MED LIST changes: +ANTIFUNGAL113 GM TP; +DOXYCYCLINE HY100 MG PO
[2017-11-17] MEDS ORDERED: METFORMIN HCL1000 MG PO (10:41)
[2017-11-17] MEDS ORDERED: AMARYL1 MG PO (10:41)
[2017-11-17 11:07] VITALS: BP 140/77
== END 2017-11-17 11:07 | disposition home or self-care (01) ==
LOC: EME 09:26
DX: Z04.71 Encounter for examination and observation following alleged adult physical abuse (principal); R26.2 Difficulty in walking, not elsewhere classified; M79.609 Pain in unspecified limb; J45.909 Unspecified asthma, uncomplicated; I10 Essential (primary) hypertension; E11.9 Type 2 diabetes mellitus without complications; Z79.84 Long term (current) use of oral hypoglycemic drugs; Z76.0 Encounter for issue of repeat prescription
CPT/HCPCS: 82948; 99281; 99283

== ENCOUNTER 2017-11-21 12:02 | Emergency (ER) | payer OTHER ==
[~2017-11-21] VITALS: Ht 177.8 cm; Wt 90.5 kg
[2017-11-21 14:35] LABS: BASOPHIL (%) 0.5 % (0-1); EOSINOPHIL (%) 2.1 % (0-5); EOSINOPHIL COUNT 0.1 K/uL (0-0.3); HEMATOCRIT 38.2 % (38.0-50.0); HEMOGLOBIN 12.9 G/DL (12.5-16.6); IMMATURE GRANULOCYTE (%) 0.3 % (0.0-0.7); LYMPHOCYTE (%) 23.4 % (15-42); LYMPHOCYTE COUNT 0.9 K/uL (1.0-2.8); MCH 30.4 PG (29.0-34.0); MCHC 33.8 G/DL (30.0-36.0); MCV 89.9 FL (86-99); MONOCYTE (%) 9.3 % (3-12); MONOCYTE COUNT 0.4 K/uL (0-0.8); NEUTROPHIL (%) 64.4 % (45-76); NEUTROPHIL COUNT 2.5 K/uL (1.8-6.4); PLATELET COUNT 198 K/uL (156-360); RBC DIS.WIDTH-CV 13.6 % (11.8-14.6); RBC DIS.WIDTH-SD 44.3 % (39-53); RED BLOOD COUNT 4.25 M/uL (4.00-5.50); WHITE BLOOD COUNT 3.9 K/uL (4.1-10.2)
[2017-11-21 14:48] LABS: ALBUMIN 3.9 G/DL (3.2-4.8); CHLORIDE 105 MEQ/L (99-109); POTASSIUM 4.1 MEQ/L (3.7-5.4); SODIUM 140 MEQ/L (136-147)
[2017-11-21 15:26] LABS: ALKALINE PHOSPHATASE 97 IU/L (3-129); ALT (GPT) 11 IU/L (3-49); AST (GOT) 15 IU/L (2-34); CREATININE 0.6 MG/DL (0.6-1.3); GFR ESTIMATE (CALCULATED) > 59 mL/min/ (58.99-99999); GLUCOSE 148 mg/dL (70-99); SERUM ETHYL ALCOHOL < 10 mg/dL; TOTAL PROTEIN 6.4 G/DL (6.4-8.3); UREA NITROGEN (BUN) 12 mg/dL (9-23)
[2017-11-21] MEDS ORDERED: HYDROCORTISONE28 G2 TP (19:49)
[2017-11-21] MEDS ORDERED: JOCK ITCH RELIE15 GM TP (19:49)
[2017-11-21 20:20] VITALS: BP 117/71
== END 2017-11-21 20:22 | disposition home or self-care (01) ==
LOC: EME 12:02
PROVIDERS: Emergency Medicine
DX: L30.4 Erythema intertrigo (principal); K21.9 Gastro-esophageal reflux disease without esophagitis; I10 Essential (primary) hypertension; F41.9 Anxiety disorder, unspecified; E11.9 Type 2 diabetes mellitus without complications; F32.9 Major depressive disorder, single episode, unspecified; J45.909 Unspecified asthma, uncomplicated; Z85.820 Personal history of malignant melanoma of skin; Z86.73 Personal history of transient ischemic attack (TIA), and cerebral infarction without residual deficits; F20.9 Schizophrenia, unspecified; Z88.2 Allergy status to sulfonamides; Z88.0 Allergy status to penicillin; Z88.1 Allergy status to other antibiotic agents
CPT/HCPCS: 74177; 80053; 83605; 85025; 99281; 99285; G0480; J7030

== ENCOUNTER 2017-11-24 03:35 | Emergency (ER) | payer OTHER ==
[~2017-11-24] VITALS: Ht 175.3 cm; Wt 90.0 kg
[~2017-11-24 03:35] MED LIST changes: +HYDROCORTISONE28 G2 TP; +JOCK ITCH RELIE15 GM TP
[2017-11-24 03:48] VITALS: BP 112/63
[2017-11-24] MEDS ORDERED: CLEOCIN300 MG PO (04:55)
== END 2017-11-24 06:36 | disposition home or self-care (01) ==
LOC: EME 03:35
DX: S61.551A Open bite of right wrist, initial encounter (principal); Z23 Encounter for immunization; Z20.3 Contact with and (suspected) exposure to rabies; F20.9 Schizophrenia, unspecified; F41.9 Anxiety disorder, unspecified; Z88.0 Allergy status to penicillin; Z88.2 Allergy status to sulfonamides; Z88.1 Allergy status to other antibiotic agents
CPT/HCPCS: 99281; 99283

== ENCOUNTER 2017-11-24 20:14 | Emergency (ER) | payer OTHER ==
[~2017-11-24] VITALS: Ht 175.3 cm; Wt 90.0 kg
[~2017-11-24 20:14] MED LIST changes: +CLEOCIN300 MG PO
[2017-11-25 00:48] LABS: APPEARANCE SL.HAZY ((CLEAR)); BILIRUBIN NEGATIVE; BLOOD NEGATIVE; COLOR AMBER ((YELLOW)); GLUCOSE (STRIP) 50; KETONES 20; LEUKOCYTES NEGATIVE; NITRITE NEGATIVE; PROTEIN (STRIP) 30; SPECIFIC GRAVITY 1.032 (1.000-1.030); UROBILINOGEN 0.2 MG/DL (0.2-1.0)
[2017-11-25 00:59] LABS: BACTERIA RARE /HPF; CALCIUM OXALATE CRYSTALS 1+ /HPF; EPITHELIAL CELLS RARE /HPF; HYALINE CASTS 0-5 /LPF; MUCUS 2+ /LPF; RED BLOOD CELLS 0-5 /HPF (0-5); UCUL ADDED? NO; WHITE BLOOD CELLS 0-5 /HPF (0-5)
[2017-11-25 14:34] LABS: HEMATOCRIT 38.6 % (38.0-50.0); HEMOGLOBIN 13.1 G/DL (12.5-16.6); MCH 30.8 PG (29.0-34.0); MCHC 33.9 G/DL (30.0-36.0); MCV 90.6 FL (86-99); PLATELET COUNT 212 K/uL (156-360); RBC DIS.WIDTH-CV 13.5 % (11.8-14.6); RBC DIS.WIDTH-SD 44.3 % (39-53); RED BLOOD COUNT 4.26 M/uL (4.00-5.50)
[2017-11-25 14:43] LABS: ALBUMIN 3.9 g/dL (3.2-4.8); CHLORIDE 103 mEq/L (99-109); POTASSIUM 3.9 mEq/L (3.7-5.4); SODIUM 140 mEq/L (136-147)
[2017-11-25 14:45] LABS: GLUCOSE 190 mg/dL (70-99); TOTAL PROTEIN 6.4 g/dL (6.4-8.3)
[2017-11-25 14:47] LABS: TOTAL BILIRUBIN 0.6 mg/dL (0.0-1.0)
[2017-11-25 14:49] LABS: ALKALINE PHOSPHATASE 103 IU/L (3-129); CREATININE 0.8 mg/dL (0.6-1.3); GFR ESTIMATE (CALCULATED) > 59 mL/min/ (58.99-99999)
[2017-11-25 14:50] LABS: AST (GOT) 18 IU/L (2-34); UREA NITROGEN (BUN) 14 mg/dL (9-23)
[2017-11-25 14:52] LABS: ALT (GPT) 12 IU/L (3-49)
[2017-11-25 16:07] LABS: AMPHETAMINE NEGATIVE (500 ng/mL); BARBITURATES NEGATIVE (200 ng/mL); BENZODIAZEPINES NEGATIVE (150 ng/mL); BUPRENORPHINE NEGATIVE (10 ng/mL); COCAINE NEGATIVE (150 ng/mL); METHADONE NEGATIVE (200 ng/mL); METHAMPHETAMINE NEGATIVE (500 ng/mL); OPIATES (MORPHINE) NEGATIVE (100 ng/mL); OXYCODONE NEGATIVE (100 ng/mL); PHENCYCLIDINE NEGATIVE (25 ng/mL); PROPOXYPHENE NEGATIVE (300 ng/mL); THC CANNABINOIDS NEGATIVE (50 ng/mL); TRICYCLIC ANTIDEPRESSANTS NEGATIVE (300 ng/mL)
[2017-11-25 18:59] VITALS: BP 142/99
== END 2017-11-25 19:00 ==
LOC: EME 20:14
PROVIDERS: Emergency Medicine; Physician Assistant Medical
DX: B35.6 Tinea cruris (principal); F20.9 Schizophrenia, unspecified; T43.506A Underdosing of unspecified antipsychotics and neuroleptics, initial encounter; T36.96XA Underdosing of unspecified systemic antibiotic, initial encounter; Z91.120 Patient's intentional underdosing of medication regimen due to financial hardship; Z88.2 Allergy status to sulfonamides; Z88.0 Allergy status to penicillin
CPT/HCPCS: 80053; 80306 90; 81003; 85027; 90837; 99281; 99285